=== PATIENT | female | born 1955 | race Caucasian/White ===

== ENCOUNTER 2016-04-28 19:47 | Emergency (ER) | payer SELFPAY ==
[~2016-04-28] VITALS: Ht 165.1 cm; Wt 40.6 kg
[2016-04-28] VITALS (7 sets, daily range): BP systolic 152–198; BP diastolic 87–112; PULSE 86–98; RESP 24–26; TEMP 97.7; O2SAT 92–96
[~2016-04-28 19:47] MED LIST: CEPH-460 PO; HYDR-3533 PO
[2016-04-28] MEDS ORDERED: methylPREDNISolone SOD SUCC 125 MG/2 ML VIAL IVP ONE (20:00)
[2016-04-28] MEDS ORDERED: SODIUM CHLORIDE 0.9% FLUSH 5 ML FLUSH IVF PRN (20:00)
--- NOTE | 2016-04-28 20:00 | PD ---
HPI Chief Complaint: shortness of breath Time Seen by Provider: 19:52 Travel History International Travel<30 days: No Contact w/Intl Traveler<30days: No Traveled to known affect area: No History of Present Illness HPI This 61-year-old female is complaining of increasing shortness of breath over the last 2 weeks. She's been coughing. She had asthma years ago but it has not been active. She does smoke cigarettes. She has no history of heart disease. She has been short of breath with minimal exertion today. She has never been diagnosed with COPD PFS Past Medical History Asthma: Yes Depression: Yes PNEUMOCCOCAL Vaccine (Year): 3 Menopausal: Yes Tubal Ligation: Yes Past Surgical History Eye Surgery: Yes (jorge luis cataract/lens implant) Pacemaker: No Social History Alcohol Use: Yes (FEW GLASSES DAILY) Tobacco Use: Yes (1 PPD) Substance Use: Yes (MARIJUANA OCC) Allergies-Medications (Allergen,Severity, Reaction): Coded Allergies: Banana (Verified Allergy, Severe, Swelling, 04/28/16) Patient states severe swelling and difficulty breathing Phenobarbital (Verified Allergy, Severe, SENSITIVITY, 04/28/16) Reported Meds & Prescriptions Reported Meds & Active Scripts Active Lortab (Hydrocodone-Acetaminophen) 5-325 Mg Tab 1 Tab PO Q6H PRN Review of Systems General / Constitutional: No: Fever, Chills Eyes: No: Diploplia, Blurred Vision HENT: No: Headaches, Vertigo Cardiovascular: No: Chest Pain or Discomfort Respiratory: Positive: Cough, Shortness of Breath, Wheezing Gastrointestinal: No: Vomiting, Diarrhea Genitourinary: No: Urgency, Frequency Musculoskeletal: No: Myalgias, Arthralgias Skin: No Rash, No Itching Neurologic: No: Weakness, Dizziness Endocrine: No: Heat Intolerance Hematologic/Lymphatic: No: Easy Bruising Physical Exam Narrative GENERAL: Thin female in moderate respiratory distress SKIN: Warm and dry. HEAD: Atraumatic. Normocephalic. EYES: Pupils equal and round. No scleral icterus. No injection or drainage. ENT: No nasal bleeding or discharge. Mucous membranes pink and moist. NECK: Trachea midline. No JVD. CARDIOVASCULAR: Regular rate and rhythm. No murmur appreciated. RESPIRATORY: Accessory muscle use is present, breath sounds are diminished bilaterally. There is bilateral wheezing GASTROINTESTINAL: Abdomen soft, non-tender, nondistended. Hepatic and splenic margins not palpable. MUSCULOSKELETAL: No obvious deformities. No clubbing. No cyanosis. No edema. NEUROLOGICAL: Awake and alert. No obvious cranial nerve deficits. Motor grossly within normal limits. Normal speech. PSYCHIATRIC: Appropriate mood and affect; insight and judgment normal. Data Data Last Documented VS Vital Signs Date Time Temp Pulse Resp B/P Pulse Ox O2 Delivery O2 Flow Rate FiO2 04/28/16 21:27 87 24 179/95 93 Nasal Cannula 2 04/28/16 20:11 97.7 Orders Complete Blood Count With Diff (04/28/16 19:56) Comprehensive Metabolic Panel (04/28/16 19:56) B-Type Natriuretic Peptide (04/28/16 19:56) Magnesium (Mg) (04/28/16 19:56) Troponin I (04/28/16 19:56) Ua Includes Microscopic (04/28/16 19:56) Blood Culture (04/28/16 19:56) Iv Access Insert/Monitor (04/28/16 19:56) Electrocardiogram (04/28/16 19:56) Ecg Monitoring (04/28/16 19:56) Oximetry (04/28/16 19:56) Oxygen Administration (04/28/16 19:56) Chest, Single Ap (04/28/16 19:56) Sodium Chloride 0.9% Flush (Ns Flush) (04/28/16 20:00) Methylprednisolone So Succ Inj (Solumedr (04/28/16 20:00) Albuterol-Ipratropium Neb (Duoneb Neb) (04/28/16 20:00) Labs Laboratory Tests Test 04/28/16 20:00 White Blood Count 25.4 TH/MM3 Red Blood Count 4.92 MIL/MM3 Hemoglobin 15.1 GM/DL Hematocrit 45.0 % Mean Corpuscular Volume 91.5 FL Mean Corpuscular Hemoglobin 30.7 PG Mean Corpuscular Hemoglobin 33.5 % Concent Red Cell Distribution Width 11.7 % Platelet Count 421 TH/MM3 Mean Platelet Volume 6.6 FL Neutrophils (%) (Auto) 28.8 % Lymphocytes (%) (Auto) 60.1 % Monocytes (%) (Auto) 3.3 % Eosinophils (%) (Auto) 6.6 % Basophils (%) (Auto) 1.2 % Neutrophils # (Auto) 7.3 TH/MM3 Lymphocytes # (Auto) 15.3 TH/MM3 Monocytes # (Auto) 0.8 TH/MM3 Eosinophils # (Auto) 1.7 TH/MM3 Basophils # (Auto) 0.3 TH/MM3 CBC Comment AUTO DIFF Differential Total Cells 100 Counted Neutrophils % (Manual) 25 % Lymphocytes % 70 % Monocytes % 3 % Eosinophils % 2 % Neutrophils # (Manual) 6.4 TH/MM3 Differential Comment FINAL DIFF MANUAL Platelet Estimate NORMAL Platelet Morphology Comment NORMAL Red Cell Morphology Comment NORMAL Sodium Level 134 MEQ/L Potassium Level 3.9 MEQ/L Chloride Level 96 MEQ/L Carbon Dioxide Level 30.0 MEQ/L Anion Gap 8 MEQ/L Blood Urea Nitrogen 11 MG/DL Creatinine 0.73 MG/DL Estimat Glomerular Filtration 81 ML/MIN Rate Random Glucose 98 MG/DL Calcium Level 8.8 MG/DL Magnesium Level 2.0 MG/DL Total Bilirubin 0.2 MG/DL Aspartate Amino Transf 22 U/L (AST/SGOT) Alanine Aminotransferase 31 U/L (ALT/SGPT) Alkaline Phosphatase 128 U/L Troponin I LESS THAN 0.02 NG/ML B-Type Natriuretic Peptide 17 PG/ML Total Protein 7.8 GM/DL Albumin 4.3 GM/DL [facility] Medical Decision Making Medical Screen Exam Complete: Yes Emergency Medical Condition: Yes Medical Record Reviewed: Yes Differential Diagnosis Differential includes COPD, asthma, pneumonia, CHF Narrative Course X-rays consistent with COPD. There is no infiltrate. She has been given Solu- Medrol and repeated nebulizer treatments and feels much better. On repeat examination she is breathing comfortably and her lungs are clear. She'll be released with prescriptions for Medrol Dosepak, albuterol and amoxicillin. Of note her white count was elevated with a predominance of lymphocytes. I have advised her that she needs to follow up regarding this finding as well as her COPD Diagnosis Primary Impression: COPD (chronic obstructive pulmonary disease) Qualified Code: J44.1 - Chronic obstructive pulmonary disease with acute exacerbation Scripts Albuterol 18 GM Inh (Ventolin Hfa 18 GM Inh)90 Mcg/Act Aer2 Puff INH Q4-6H PRN ( SHORTNESS OF BREATH) #1 INHALER Ref 0 Prov:Orlin Courtney MD 04/28/16 Methylprednisolone Dosepak (Medrol Dosepak)4 Mg Dspk4 Mg PO DIRECTED #1 DSPK Ref 0 Per Pharmacist direction Prov:Orlin Courtney MD 04/28/16 Amoxicillin 500 Mg [id number] Mg PO TID #21 TAB Ref 0 Prov:Orlin Courtney MD 04/28/16 Disposition: 01 DISCHARGE HOME Condition: Stable Orlin Courtney MD Apr 28, 2016 20:00
[2016-04-28 20:14] LABS: AUTOMATED NEUTROPHIL # 7.3 TH/MM3 (1.8-7.7); BASOPHIL # 0.3 TH/MM3 (0-0.2); BASOPHIL % 1.2 % (0.0-2.0); EOSINOPHIL # 1.7 TH/MM3 (0-0.4); EOSINOPHIL % 6.6 % (0.0-4.0); LYMPH % 60.1 % (9.0-44.0); LYMPHOCYTE # 15.3 TH/MM3 (1.0-4.8); MEAN CELL VOLUME 91.5 FL (80.0-100.0); MEAN CORPUSCULAR HEMOGLOBIN 30.7 PG (27.0-34.0); MEAN CORPUSCULAR HGB CONC 33.5 % (32.0-36.0); MONO % 3.3 % (0.0-8.0); NEUT % 28.8 % (16.0-70.0); PLATELET COUNT 421 TH/MM3 (150-450); RED BLOOD COUNT 4.92 MIL/MM3 (4.00-5.30); RED CELL DISTRIBUTION WIDTH 11.7 % (11.6-17.2); WHITE BLOOD COUNT 25.4 TH/MM3 (4.0-11.0)
[2016-04-28] MEDS: RESP: ALBUTEROL 2.5 MG/IPRATROPIUM 0.5 MG NEB (SCH) INH ×2 (20:19→20:20)
[2016-04-28 20:25] LABS: CHLORIDE 96 MEQ/L (98-107); POTASSIUM 3.9 MEQ/L (3.5-5.1); SODIUM (NA) 134 MEQ/L (136-145)
[2016-04-28 20:29] LABS: ANION GAP 8 MEQ/L (5-15); BLOOD UREA NITROGEN 11 MG/DL (7-18)
[2016-04-28 20:32] LABS: ALT (GPT) 31 U/L (10-53); AST (GOT) 22 U/L (15-37); GLOMERULAR FILTRATION RATE 81 ML/MIN (>89)
[2016-04-28 20:33] LABS: TOTAL BILIRUBIN ADULT 0.2 MG/DL (0.2-1.0)
[2016-04-28 20:35] LABS: ALKALINE PHOSPHATASE 128 U/L (45-117); HEMO FLAGS AUTO DIFF
[2016-04-28 21:00] LABS: EOSINOPHILS 2 % (0-4); NEUTROPHIL # MANUAL DIFF 6.4 TH/MM3 (1.8-7.7); POLYS (SEG NEUTROPHILS) 25 % (16-70); WBC DIFF SAMPLE 100
[2016-04-28 21:01] LABS: PLATELET ESTIMATE SMEAR NORMAL (NORMAL); PLATELET MORPHOLOGY NORMAL (NORMAL); SCAN/DIFF FINAL DIFF MANUAL
--- NOTE | 2016-04-28 21:10 | RADHPO ---
EXAM DATE/TIME: 04/28/2016 20:05 [facility] COMPARISON: CHEST SINGLE AP, October 23, 2013, 13:46. INDICATIONS : Short of breath. MEDICAL HISTORY : None. SURGICAL HISTORY : None. ENCOUNTER: Initial ACUITY: 2 weeks PAIN SCORE: 3/10 LOCATION: Bilateral lower chest FINDINGS: The lungs are clear without infiltrate, nodule, or mass. There is no appreciable pleural effusion fo r technique. Heart and mediastinum are unremarkable. There is scarring and pleural thickening in th e apices bilaterally. COPD changes are seen. CONCLUSION: No acute cardiopulmonary disease. Shawn Jane MD on April 28, 2016 at 21:08 Board Certified Radiologist. This report was verified electronically.
[2016-04-28] MEDS ORDERED: AMOX500T PO (22:32)
[2016-04-28] MEDS ORDERED: VENTAER INH (22:32)
[2016-04-28] MEDS ORDERED: MEDR4PAK PO (22:32)
--- NOTE | 2016-04-29 23:17 | EKG ---
Date Performed: 04/28/2016 Time Performed: 20:37:44 PTAGE: 61 years EKG: Sinus rhythm Short TN interval Possible anterior infarct - age undetermined Abnormal ECG PREVIOUS TRACING : 10/23/2013 14.03 DOCTOR: Jeremiah Mallory Interpretating Date/Time 04/29/2016 23:14:44
== END 2016-04-28 23:15 | disposition home or self-care (01) ==
LOC: PHED 19:47
DX: J44.1 Chronic obstructive pulmonary disease with (acute) exacerbation (principal); F17.210 Nicotine dependence, cigarettes, uncomplicated; F10.10 Alcohol abuse, uncomplicated
CPT/HCPCS: 71010; 80053; 83735; 83880; 84484; 85007; 85027; 87040; 93005; 94640; 94664; 96374; 99285; J2930

== ENCOUNTER 2016-05-27 12:22 | Emergency (ER) | payer SELFPAY ==
[~2016-05-27] VITALS: Ht 165.1 cm; Wt 40.0 kg
[~2016-05-27 12:22] MED LIST changes: +AMOX500T PO; -CEPH-460 PO; +MEDR4PAK PO; +VENTAER INH
[2016-05-27 12:28] VITALS: BP 152/104; PULSE 100; RESP 22; TEMP 98.1; O2SAT 93
[2016-05-27 12:46] VITALS: BP 153/94; PULSE 92; RESP 18; O2SAT 93
[2016-05-27] MEDS ORDERED: BENA25TA3 PO (12:49)
[2016-05-27] MEDS ORDERED: SODIUM CHLORIDE 0.9% FLUSH 10 ML FLUSH IVF PRN (13:00)
[2016-05-27] MEDS ORDERED: methylPREDNISolone SOD SUCC 125 MG/2 ML VIAL IV PUSH ONE (13:00)
--- NOTE | 2016-05-27 13:02 | PD ---
HPI Chief Complaint: Respiratory Symptoms Time Seen by Provider: 12:46 Travel History International Travel<30 days: No Contact w/Intl Traveler<30days: No Traveled to known affect area: No History of Present Illness HPI This patient complains of shortness of breath. He has history of asthma and almost certainly COPD. She smoked for 46 years but does not go to physicians except the ER when she gets short of breath. No chest pain or fever. Severity of symptoms is moderate. No alleviating factors. Duration 3 days PFSH Past Medical History Asthma: Yes Depression: Yes COPD: Yes Diminished Hearing: No Musculoskeletal: Yes (OSTEOPOROSIS) Respiratory: Yes (copd) Tetanus Vaccination: Unknown PNEUMOCCOCAL Vaccine (Year): 3 ?: Not Menopausal: Yes Tubal Ligation: Yes Past Surgical History Eye Surgery: Yes (jorge luis cataract/lens implant) Pacemaker: No Social History Alcohol Use: Yes (FEW GLASSES DAILY) Tobacco Use: No (QUIT 1.5 WEEKS AGO (05/27/16)) Substance Use: Yes (MARIJUANA OCC) Allergies-Medications (Allergen,Severity, Reaction): Coded Allergies: Banana (Verified Allergy, Severe, Swelling, 05/27/16) Patient states severe swelling and difficulty breathing Phenobarbital (Verified Allergy, Severe, SENSITIVITY, 05/27/16) Reported Meds & Prescriptions Reported Meds & Active Scripts Active Ventolin Hfa 18 GM Inh (Albuterol Sulfate) 90 Mcg/Act Aer 2 Puff INH Q4-6H PRN Reported Benadryl Allergy (Diphenhydramine HCl) 25 Mg Tab 25 Mg PO Q6H PRN Review of Systems General / Constitutional: No: Fever Eyes: No: Visual changes HENT: Positive: Congestion, No: Headaches Cardiovascular: No: Chest Pain or Discomfort Respiratory: Positive: Cough, Shortness of Breath Gastrointestinal: No: Abdominal Pain Genitourinary: No: Dysuria Musculoskeletal: No: Pain Skin: No Rash Neurologic: No: Weakness Psychiatric: No: Depression Endocrine: No: Polydipsia Hematologic/Lymphatic: No: Easy Bruising Physical Exam Narrative GENERAL: Thin elderly patient who is short of breath. SKIN: Focused skin assessment reveals no rash and nodules. Skin is Warm and dry. HEAD: Atraumatic. Normocephalic. EYES: Pupils equal and round. No scleral icterus. No injection or drainage. ENT: No nasal bleeding or discharge. Mucous membranes pink and moist. NECK: Trachea midline. No JVD. CARDIOVASCULAR: Regular rate and rhythm. No murmur appreciated. RESPIRATORY: Positive accessory muscle use. Diminished breath sounds throughout. There is some rhonchi and a rare expiratory wheeze. Breath sounds equal bilaterally. GASTROINTESTINAL: Abdomen soft, non-tender, nondistended. Hepatic and splenic margins not palpable. MUSCULOSKELETAL: No obvious deformities. No clubbing. No cyanosis. No edema. NEUROLOGICAL: Awake and alert. No obvious cranial nerve deficits. Motor grossly within normal limits. Normal speech. PSYCHIATRIC: Appropriate mood and affect; insight and judgment normal. Data Data Last Documented VS Vital Signs Date Time Temp Pulse Resp B/P Pulse Ox O2 Delivery O2 Flow Rate FiO2 05/27/16 13:04 18 92 Room Air 05/27/16 12:46 92 153/94 05/27/16 12:28 98.1 Orders Complete Blood Count With Diff (05/27/16 12:57) Basic Metabolic Panel (Bmp) (05/27/16 12:57) Iv Access Insert/Monitor (05/27/16 12:57) Ecg Monitoring (05/27/16 12:57) Oximetry (05/27/16 12:57) Chest, Single Ap (05/27/16 12:57) Sodium Chloride 0.9% Flush (Ns Flush) (05/27/16 13:00) Albuterol-Ipratropium Neb (Duoneb Neb) (05/27/16 13:00) Methylprednisolone So Succ Inj (Solumedr (05/27/16 13:00) Labs Laboratory Tests Test 05/27/16 13:10 White Blood Count 21.4 TH/MM3 Red Blood Count 4.42 MIL/MM3 Hemoglobin 13.8 GM/DL Hematocrit 40.4 % Mean Corpuscular Volume 91.3 FL Mean Corpuscular Hemoglobin 31.2 PG Mean Corpuscular Hemoglobin 34.1 % Concent Red Cell Distribution Width 12.0 % Platelet Count 384 TH/MM3 Mean Platelet Volume 6.3 FL Neutrophils (%) (Auto) 24.9 % Lymphocytes (%) (Auto) 63.7 % Monocytes (%) (Auto) 3.8 % Eosinophils (%) (Auto) 5.1 % Basophils (%) (Auto) 2.5 % Neutrophils # (Auto) 5.3 TH/MM3 Lymphocytes # (Auto) 13.7 TH/MM3 Monocytes # (Auto) 0.8 TH/MM3 Eosinophils # (Auto) 1.1 TH/MM3 Basophils # (Auto) 0.5 TH/MM3 CBC Comment AUTO DIFF Differential Total Cells 100 Counted Neutrophils % (Manual) 21 % Lymphocytes % 72 % Monocytes % 4 % Eosinophils % 3 % Neutrophils # (Manual) 4.5 TH/MM3 Differential Comment FINAL DIFF MANUAL Platelet Estimate NORMAL Platelet Morphology Comment NORMAL Sodium Level 136 MEQ/L Potassium Level 4.0 MEQ/L Chloride Level 99 MEQ/L Carbon Dioxide Level 28.9 MEQ/L Anion Gap 8 MEQ/L Blood Urea Nitrogen 14 MG/DL Creatinine 0.64 MG/DL Estimat Glomerular Filtration 94 ML/MIN Rate Random Glucose 98 MG/DL Calcium Level 8.9 MG/DL [facility] Medical Decision Making Medical Screen Exam Complete: Yes Emergency Medical Condition: Yes Medical Record Reviewed: Yes Differential Diagnosis Differential diagnosis includes COPD, asthma, pneumonia, bronchitis, CHF Narrative Course I have reviewed the patient's electronic medical record. Patient was here a few weeks ago for the same complaint. Had a negative chest x-ray at that time IV placed I gave him IV Solu-Medrol and a series of 3 nebulizer treatments I reviewed her chest x-ray which shows COPD like changes but no infiltrate CBC is normal Metabolic profile is normal On reevaluation she is clinically much improved Saturations are running around 95% I wrote her 5 days prednisone and both Atrovent and albuterol inhalers Importantly she needs to stop smoking and follow-up with her primary physician Diagnosis Primary Impression: COPD exacerbation Departure Forms: Tests/Procedures Additional Instructions: The patient was advised to follow up with their physician and return if they worsen. Stop smoking Med/Other Pt SpecificInfo: Prescription(s) given Scripts Albuterol 18 GM Inh (Ventolin Hfa 18 GM Inh)90 Mcg/Act Aer2 Puff INH Q4H PRN ( SHORTNESS OF BREATH) #1 INHALER Ref 0 Prov:Wil Leach MD 05/27/16 Ipratropium HFA 12.9 GM Inh (Atrovent HFA 12.9 GM Inh)17 Mcg/Act Aer2 Puff INH TID #1 INHALER Ref 0 Prov:Wil Leach MD 05/27/16 Prednisone 20 Mg Tab40 Mg PO DAILY #10 TAB Ref 0 Take 40 mg (2 tablets) daily for 5 days Prov:Wil Leach MD 05/27/16 Disposition: 01 DISCHARGE HOME Condition: Stable Wil Leach MD May 27, 2016 13:02
[2016-05-27] MEDS: RESP: ALBUTEROL 2.5 MG/IPRATROPIUM 0.5 MG NEB (SCH) INH (13:03)
[2016-05-27 13:04] VITALS: RESP 18; O2SAT 92
[2016-05-27 13:23] LABS: AUTOMATED NEUTROPHIL # 5.3 TH/MM3 (1.8-7.7); BASOPHIL # 0.5 TH/MM3 (0-0.2); BASOPHIL % 2.5 % (0.0-2.0); EOSINOPHIL # 1.1 TH/MM3 (0-0.4); EOSINOPHIL % 5.1 % (0.0-4.0); HEMATOCRIT 40.4 % (35.0-46.0); LYMPH % 63.7 % (9.0-44.0); LYMPHOCYTE # 13.7 TH/MM3 (1.0-4.8); MEAN CELL VOLUME 91.3 FL (80.0-100.0); MEAN CORPUSCULAR HEMOGLOBIN 31.2 PG (27.0-34.0); MEAN CORPUSCULAR HGB CONC 34.1 % (32.0-36.0); MONO % 3.8 % (0.0-8.0); NEUT % 24.9 % (16.0-70.0); PLATELET COUNT 384 TH/MM3 (150-450); RED BLOOD COUNT 4.42 MIL/MM3 (4.00-5.30); WHITE BLOOD COUNT 21.4 TH/MM3 (4.0-11.0)
--- NOTE | 2016-05-27 13:24 | RADHPO ---
EXAM DATE/TIME: 05/27/2016 13:18 [facility] COMPARISON: CHEST SINGLE AP, April 28, 2016, 20:05. INDICATIONS : Short of breath MEDICAL HISTORY : Chronic obstructive pulmonary disease. Asthma SURGICAL HISTORY : None. ENCOUNTER: Initial ACUITY: 1 day PAIN SCORE: 2/10 LOCATION: Bilateral chest FINDINGS: A single view of the chest demonstrates the lungs to be symmetrically aerated without evidence of mas s, infiltrate or effusion. The lungs are hyperaerated bilaterally. The cardiomediastinal contours ar e unremarkable. Osseous structures are intact. CONCLUSION: Hyperinflation suggesting COPD. No acute infiltrate or effusion. Jai Watt Jr., MD on May 27, 2016 at 13:22 Board Certified Radiologist. This report was verified electronically.
[2016-05-27 13:25] LABS: HEMO FLAGS AUTO DIFF
[2016-05-27 13:36] LABS: BICARBONATE 28.9 MEQ/L (21.0-32.0)
[2016-05-27 13:47] LABS: EOSINOPHILS 3 % (0-4); NEUTROPHIL # MANUAL DIFF 4.5 TH/MM3 (1.8-7.7); POLYS (SEG NEUTROPHILS) 21 % (16-70); WBC DIFF SAMPLE 100
[2016-05-27 13:48] LABS: PLATELET ESTIMATE SMEAR NORMAL (NORMAL); PLATELET MORPHOLOGY NORMAL (NORMAL); SCAN/DIFF FINAL DIFF MANUAL
[2016-05-27] MEDS ORDERED: IPRA17I INH (13:59)
[2016-05-27] MEDS ORDERED: VENTAER INH (13:59)
[2016-05-27] MEDS ORDERED: PRED20 PO (13:59)
[2016-05-27 14:01] VITALS: BP 140/72; PULSE 92; RESP 18; O2SAT 94
== END 2016-05-27 14:12 | disposition home or self-care (01) ==
LOC: PHED 12:22
DX: J44.1 Chronic obstructive pulmonary disease with (acute) exacerbation (principal); M81.0 Age-related osteoporosis without current pathological fracture; Z87.891 Personal history of nicotine dependence
CPT/HCPCS: 71010; 80048; 85007; 85027; 94640; 94664; 96374; 99285; J2930

== ENCOUNTER 2016-11-07 14:21 | Emergency (ER) | payer SELFPAY ==
[~2016-11-07] VITALS: Ht 165.1 cm; Wt 43.0 kg
[~2016-11-07 14:21] MED LIST changes: -AMOX500T PO; +BENA25TA3 PO; -HYDR-3533 PO; +IPRA17I INH; -MEDR4PAK PO; +PRED20 PO
[2016-11-07 15:38] VITALS: BP 170/81; PULSE 88; RESP 16; TEMP 98.6; O2SAT 98
--- NOTE | 2016-11-07 15:47 | RADRPT ---
EXAM DATE/TIME: 11/07/2016 15:27 [facility] COMPARISON: No previous studies available for comparison. INDICATIONS : Left knee pain. MEDICAL HISTORY : None. SURGICAL HISTORY : None. ENCOUNTER: Initial ACUITY: 1 day PAIN SCORE: 8/10 LOCATION: Left knee FINDINGS: There is a moderate to large effusion. There is some fat density seen in the superior aspect of the s uprapatellar region. On the lateral view, there is a lucent area seen over one of the posterior condy les. Some of this may relate to a mach effect posterior to the tibial spines. A subtle fracture canno t be excluded. No fracture seen on the other views. CONCLUSION: Moderate to large effusion with some questionable fat within the effusion. An occult fracture cannot be excluded. The knee could be further evaluated with CT examination. Kobe Dominguez MD on November 07, 2016 at 15:41 Board Certified Radiologist. This report was verified electronically.
--- NOTE | 2016-11-07 17:56 | RADRPT ---
EXAM DATE/TIME: 11/07/2016 17:31 [facility] COMPARISON: KNEE LEFT COMPLETE (4VWS), November 07, 2016, 15:27. INDICATIONS : Abnormal x-ray. Evaluate fracture. RADIATION DOSE: 6.97 CTDIvol (mGy) MEDICAL HISTORY : Chronic obstructive pulmonary disease. SURGICAL HISTORY : Hysterectomy. ENCOUNTER: Initial ACUITY: 1 day PAIN SCALE: 4/10 LOCATION: Left knee TECHNIQUE: Volumetric scanning of the knee was performed. Using automated exposure control and adjustment of th e mA and/or kV according to patient size, radiation dose was kept as low as reasonably achievable to obtain optimal diagnostic quality images. DICOM format image data is available electronically for re view and comparison. FINDINGS: There is a comminuted fracture of the lateral and posterior weightbearing surfaces of the medial tibi al plateau. There is approximately 4 mm of posteromedial downsloping, for example series 300 image 40 . The fracture has minimally displaced extension laterally through the tibial eminence and posterior weightbearing surface of the lateral tibial plateau.. Cruciate ligaments are grossly intact. No other fractures are seen. No subluxations. There is a large lipohemarthrosis. CONCLUSION: Comminuted fracture of the proximal tibia including the medial and lateral plateaus and the tibial em inence. Up to 4 mm of posteromedial downsloping of the medial tibial plateau. Otherwise essential ly nondisplaced. Large lipohemarthrosis. Kobe Thompson MD on November 07, 2016 at 17:50 Board Certified Radiologist. This report was verified electronically.
[2016-11-07] MEDS ORDERED: MORPHINE SULFATE 4 MG/ML INJ IM ONE (18:00)
[2016-11-07] MEDS ORDERED: KETOROLAC TROMETHAMINE 60 MG/2 ML (IM) VIAL IM ONE (18:00)
[2016-11-07] MEDS ORDERED: ONDANSETRON ODT 4 MG TAB PO ONE (18:00)
--- NOTE | 2016-11-07 18:08 | PD ---
HPI Chief Complaint: Fall Time Seen by Provider: 17:23 Travel History International Travel<30 days: No Contact w/Intl Traveler<30days: No Traveled to known affect area: No History of Present Illness HPI 61-year-old female that presents to the ED for evaluation of fall. Per patient she was outside doing some cleanup when I goes off when he got her and she fell into her left knee. Per patient she denies any other injuries. Per patient her pain in her left knee is 10 out of 10. Denies any prior injuries to this knee but states that she has "brittle bones "she has had 3 fractures in the past 8 years. She is concerned she might have a new one. States having pain only to the knee. No hip pain or ankle pain. She does have a history of allergic reaction to grass and she has a rash to her legs which is pruritic and swollen. Denies any other medical issues. No blood thinners. No head injury or loss of consciousness. PFSH Past Medical History Asthma: Yes Depression: Yes COPD: Yes Diminished Hearing: No Musculoskeletal: Yes (OSTEOPOROSIS) Respiratory: Yes (copd) PNEUMOCCOCAL Vaccine (Year): 3 Menopausal: Yes Tubal Ligation: Yes Past Surgical History Eye Surgery: Yes (jorge luis cataract/lens implant) Pacemaker: No Social History Alcohol Use: Yes (FEW GLASSES DAILY) Tobacco Use: No (QUIT 1.5 WEEKS AGO (05/27/16)) Substance Use: Yes (MARIJUANA OCC) Allergies-Medications (Allergen,Severity, Reaction): Coded Allergies: banana (Unverified Allergy, Severe, Swelling, 11/07/16) Patient states severe swelling and difficulty breathing phenobarbital (Unverified Allergy, Severe, SENSITIVITY, 11/07/16) Reported Meds & Prescriptions Reported Meds & Active Scripts Active Walker with Front Wheels (Device) 1 Mis Mis Ea .ROUTE DIRECTED Diclofenac Sodium DR (Diclofenac Sodium) 75 Mg Tabdr 75 Mg PO BID PRN Lortab (Hydrocodone-Acetaminophen) 5-325 Mg Tab 1 Tab PO Q6H PRN Ventolin Hfa 18 GM Inh (Albuterol Sulfate) 90 Mcg/Act Aer 2 Puff INH Q4H PRN Atrovent HFA 12.9 GM Inh (Ipratropium [place]) 17 Mcg/Act Aer 2 Puff INH TID Prednisone 20 Mg Tab 40 Mg PO DAILY Take 40 mg (2 tablets) daily for 5 days Ventolin Hfa 18 GM Inh (Albuterol Sulfate) 90 Mcg/Act Aer 2 Puff INH Q4-6H PRN Reported Benadryl Allergy (Diphenhydramine HCl) 25 Mg Tab 25 Mg PO Q6H PRN Review of Systems Except as stated in HPI: all other systems reviewed are Neg Physical Exam Narrative GENERAL: SKIN: Warm and dry. HEAD: Atraumatic. Normocephalic. EYES: Pupils equal and round. No scleral icterus. No injection or drainage. ENT: No nasal bleeding or discharge. Mucous membranes pink and moist. Tongue is midline. No uvula deviation. NECK: Trachea midline. No JVD. CARDIOVASCULAR: Regular rate and rhythm. No murmurs, S3, S4. RESPIRATORY: No accessory muscle use. Clear to auscultation. Breath sounds equal bilaterally. GASTROINTESTINAL: Abdomen soft, non-tender, nondistended. Hepatic and splenic margins not palpable. MUSCULOSKELETAL: Extremities without clubbing, cyanosis, or edema. No obvious deformities. Full range of motion of all extremities with the exception of the left knee. Patient does have significant swelling to the knee. Very tender especially with flexion. Patient does have a hematoma in the area as well. No other bony injury noted. Patient does have 2+ pulses bilaterally. Neurovascular intact. Sensation intact bilaterally. Full range of motion of the hips with no pain. No lumbar, thoracic, cervical spine spine tenderness to palpation. Full range of motion of the upper extremities. NEUROLOGICAL: Awake and alert. No obvious cranial nerve deficits. Motor grossly within normal limits. Five out of 5 muscle strength in the arms and legs. Normal speech. PSYCHIATRIC: Appropriate mood and affect; insight and judgment normal. Data Data Last Documented VS Vital Signs Date Time Temp Pulse Resp B/P (MAP) Pulse Ox O2 Delivery O2 Flow Rate FiO2 11/07/16 15:38 98.6 88 16 170/81 (110) 98 Orders Orders Knee, Complete (4vws) (11/07/16 ) Ct Knee W/O Contrast (11/07/16 ) Morphine Inj (Morphine Inj) (11/07/16 18:00) Ondansetron Odt (Zofran Odt) (11/07/16 18:00) Ketorolac Inj (Toradol Inj) (11/07/16 18:00) Splint Or Brace Apply/Monitor (11/07/16 18:47) Immobilizer Knee 20 Inch (11/07/16 ) MDM Medical Decision Making Medical Screen Exam Complete: Yes Emergency Medical Condition: Yes Medical Record Reviewed: Yes Interpretation(s) Last Impressions Lower Extremity CT 11/07/16 0000 Signed Impressions: Service Date/Time: Monday, November 07, 2016 17:31 - CONCLUSION: Comminuted fracture of the proximal tibia including the medial and lateral plateaus and the tibial eminence. Up to 4 mm of posteromedial downsloping of the medial tibial plateau. Otherwise essentially nondisplaced. Large lipohemarthrosis. Kobe Thompson MD Knee X-Ray 11/07/16 0000 Signed Impressions: Service Date/Time: Monday, November 07, 2016 15:27 - CONCLUSION: Moderate to large effusion with some questionable fat within the effusion. An occult fracture cannot be excluded. The knee could be further evaluated with CT examination. Kobe Dominguez MD Differential Diagnosis Fracture versus sprain versus strain versus bruise versus contusion Narrative Course 61-year-old female that presents to the ED for evaluation of left knee injury. Patient was properly examined and was found to have signs and symptoms concerning for fractures. X-rays were done at triage did show significant effusion. Radiologist recommended CT. CT was ordered at triage as well. CT came back showing comminuted fracture of the proximal tibia including the medial and lateral blood cells and medial eminence. Up to 4 mm of posterior medial downsloping of the medial tibia plateau. Otherwise essentially nondisplaced. Large lipohemarthrosis. Patient was told results. She was given IM pain medications. Case discussed with the orthopedic surgeon who recommends Diagnosis Primary Impression: Tibia fracture Qualified Codes: S82.102A - Unspecified fracture of upper end of left tibia, initial encounter for closed fracture Referrals: Nehemias Tony MD Patient Instructions: General Instructions, Narcotic given in the ED Additional Instructions: Take medications as prescribed. Follow-up with ortho. See ED for any worsening symptoms. Do not drink or drive while taking pain medication. Apply ice or heat as needed for pain Med/Other Pt SpecificInfo: Prescription(s) given Scripts Walker with Front Wheels (Walker with Front Wheels) 1 Mis Mis EA .ROUTE DIRECTED, #1 0 Refills Prov: Eric Winters MD 11/07/[address] (Diclofenac Sodium DR) 75 Mg Tabdr 75 MG PO BID Y for PAIN SCALE 1 TO 10, #60 TAB 0 Refills Prov: Eric Winters MD 11/07/16 Hydrocodone-Acetaminophen (Lortab) 5-325 Mg Tab 1 TAB PO Q6H Y for PAIN, #14 TAB 0 Refills Prov: Eric Winters MD 11/07/16 Disposition: 01 DISCHARGE HOME Condition: Stable Alex Gandhi Nov 07, 2016 18:08
[2016-11-07] MEDS ORDERED: DICL75TA PO (19:05)
[2016-11-07] MEDS ORDERED: HYDR-3533 PO (19:05)
[2016-11-07] MEDS ORDERED: WALKER WHEELS/F1 MIS ×2 (19:05→19:15)
[2016-11-07 20:03] VITALS: BP 156/79; PULSE 84; RESP 18; O2SAT 95
[2016-11-07 20:09] VITALS: RESP 18
== END 2016-11-07 20:25 | disposition home or self-care (01) ==
LOC: PHEFT 14:21
DX: S82.102A Unspecified fracture of upper end of left tibia, initial encounter for closed fracture (principal); W18.30XA Fall on same level, unspecified, initial encounter; Y93.H9 Activity, other involving exterior property and land maintenance, building and construction; J45.909 Unspecified asthma, uncomplicated; J44.9 Chronic obstructive pulmonary disease, unspecified; M81.8 Other osteoporosis without current pathological fracture; Z87.891 Personal history of nicotine dependence
CPT/HCPCS: 73564; 73700; 96372; 99285; J1885; J2270; L1830

== ENCOUNTER 2017-03-06 20:34 | Emergency (ER) | payer SELFPAY ==
[~2017-03-06] VITALS: Ht 165.1 cm; Wt 42.7 kg
[~2017-03-06 20:34] MED LIST changes: +DICL75TA PO; +HYDR-3533 PO; +WALKER WHEELS/F1 MIS
[2017-03-06 20:36] VITALS: BP 208/104; PULSE 93; RESP 22; TEMP 97.9; O2SAT 94
[2017-03-06 20:46] VITALS: BP 197/112; PULSE 88; RESP 18; TEMP 97.2; O2SAT 97
[2017-03-06] MEDS ORDERED: hydrALAZINE HCL 20 MG/ML VIAL IV PUSH ONE (21:00)
[2017-03-06] MEDS ORDERED: RESP: ALBUTEROL 2.5 MG/IPRATROPIUM 0.5 MG NEB (SCH) INH ONE ×2 (21:00→21:45)
[2017-03-06 21:16] LABS: AUTOMATED NEUTROPHIL # 6.2 TH/MM3 (1.8-7.7); BASOPHIL # 0.2 TH/MM3 (0-0.2); BASOPHIL % 0.7 % (0.0-2.0); EOSINOPHIL # 0.9 TH/MM3 (0-0.4); EOSINOPHIL % 4.1 % (0.0-4.0); HEMATOCRIT 42.8 % (35.0-46.0); HEMOGLOBIN 13.9 GM/DL (11.6-15.3); LYMPH % 62.9 % (9.0-44.0); LYMPHOCYTE # 14.1 TH/MM3 (1.0-4.8); MEAN CELL VOLUME 90.5 FL (80.0-100.0); MEAN CORPUSCULAR HEMOGLOBIN 29.3 PG (27.0-34.0); MEAN CORPUSCULAR HGB CONC 32.4 % (32.0-36.0); MEAN PLATELET VOLUME 6.2 FL (7.0-11.0); MONO % 4.5 % (0.0-8.0); NEUT % 27.8 % (16.0-70.0); PLATELET COUNT 317 TH/MM3 (150-450); RED BLOOD COUNT 4.72 MIL/MM3 (4.00-5.30); RED CELL DISTRIBUTION WIDTH 12.6 % (11.6-17.2); WHITE BLOOD COUNT 22.4 TH/MM3 (4.0-11.0)
--- NOTE | 2017-03-06 21:17 | PD ---
HPI Chief Complaint: Respiratory Symptoms Time Seen by Provider: 20:53 Travel History International Travel<30 days: No Contact w/Intl Traveler<30days: No Traveled to known affect area: No History of Present Illness HPI 61-year-old female complains of shortness of breath. Patient states that the shortness breath is worse at night. Patient denies any coughing congestion fever chills. Patient denies any chest pain. Patient has history COPD. Patient states that she smoked occasionally. Patient states that she ran out of her inhaler and nebulizer medication. Patient has history of elevated blood pressure however has not seen any local physician for blood pressure medication. Patient denies any headache. Patient denies any abdominal pain. Patient denies any nausea vomiting diarrhea. Patient denies any focal weakness or numbness of extremity. PFSH Past Medical History Asthma: Yes Depression: Yes COPD: Yes Diminished Hearing: No Musculoskeletal: Yes (OSTEOPOROSIS) Respiratory: Yes (copd) Tetanus Vaccination: > 5 Years PNEUMOCCOCAL Vaccine (Year): 3 ?: Not Menopausal: Yes Tubal Ligation: Yes Past Surgical History Eye Surgery: Yes (jorge luis cataract/lens implant) Pacemaker: No Social History Alcohol Use: Yes (FEW GLASSES DAILY) Tobacco Use: Yes (1 ppd ) Substance Use: No Allergies-Medications (Allergen,Severity, Reaction): Coded Allergies: banana (Unverified Allergy, Severe, Swelling, 03/06/17) Patient states severe swelling and difficulty breathing phenobarbital (Unverified Allergy, Severe, SENSITIVITY, 03/06/17) Reported Meds & Prescriptions Reported Meds & Active Scripts Active No Active Prescriptions or Reported Medications Review of Systems General / Constitutional: No: Fever Eyes: No: Visual changes HENT: No: Headaches Cardiovascular: No: Chest Pain or Discomfort Respiratory: Positive: Shortness of Breath Gastrointestinal: No: Abdominal Pain Genitourinary: No: Dysuria Musculoskeletal: No: Pain Skin: No Rash Neurologic: No: Weakness Psychiatric: No: Depression Endocrine: No: Polydipsia Hematologic/Lymphatic: No: Easy Bruising Physical Exam Narrative GENERAL: Well-nourished, well-developed patient. SKIN: Focused skin assessment warm/dry. HEAD: Normocephalic. EYES: No scleral icterus. No injection or drainage. NECK: Supple, trachea midline. No JVD or lymphadenopathy. CARDIOVASCULAR: Regular rate and rhythm without murmurs, gallops, or rubs. RESPIRATORY: Breath sounds equal bilaterally. No accessory muscle use. Mild expiratory wheezes bilaterally. GASTROINTESTINAL: Abdomen soft, non-tender, nondistended. MUSCULOSKELETAL: No cyanosis, or edema. BACK: Nontender without obvious deformity. No CVA tenderness. Neurologic exam normal. Data Data Last Documented VS Vital Signs Date Time Temp Pulse Resp B/P (MAP) Pulse Ox O2 Delivery O2 Flow Rate FiO2 03/06/17 21:31 94 03/06/17 20:51 Room Air 03/06/17 20:46 97.2 88 18 Orders Orders Complete Blood Count With Diff (03/06/17 20:59) Basic Metabolic Panel (Bmp) (03/06/17 20:59) Chest, Single Ap (03/06/17 20:59) Iv Access Insert/Monitor (03/06/17 20:59) Ecg Monitoring (03/06/17 20:59) Oximetry (03/06/17 20:59) Albuterol-Ipratropium Neb (Duoneb Neb) (03/06/17 21:00) Hydralazine Inj (Apresoline Inj) (03/06/17 21:00) Methylprednisolone So Succ Inj (Solumedr (03/06/17 21:45) Albuterol-Ipratropium Neb (Duoneb Neb) (03/06/17 21:45) Labs Laboratory Tests Test 03/06/17 21:11 White Blood Count 22.4 TH/MM3 Red Blood Count 4.72 MIL/MM3 Hemoglobin 13.9 GM/DL Hematocrit 42.8 % Mean Corpuscular Volume 90.5 FL Mean Corpuscular Hemoglobin 29.3 PG Mean Corpuscular Hemoglobin Concent 32.4 % Red Cell Distribution Width 12.6 % Platelet Count 317 TH/MM3 Mean Platelet Volume 6.2 FL Neutrophils (%) (Auto) 27.8 % Lymphocytes (%) (Auto) 62.9 % Monocytes (%) (Auto) 4.5 % Eosinophils (%) (Auto) 4.1 % Basophils (%) (Auto) 0.7 % Neutrophils # (Auto) 6.2 TH/MM3 Lymphocytes # (Auto) 14.1 TH/MM3 Monocytes # (Auto) 1.0 TH/MM3 Eosinophils # (Auto) 0.9 TH/MM3 Basophils # (Auto) 0.2 TH/MM3 CBC Comment AUTO DIFF Blood Urea Nitrogen 9 MG/DL Creatinine 0.49 MG/DL Random Glucose 106 MG/DL Calcium Level 8.6 MG/DL Sodium Level 132 MEQ/L Potassium Level 3.6 MEQ/L Chloride Level 95 MEQ/L Carbon Dioxide Level 30.2 MEQ/L Anion Gap 7 MEQ/L Estimat Glomerular Filtration Rate 128 ML/MIN MDM Medical Decision Making Medical Screen Exam Complete: Yes Emergency Medical Condition: Yes Interpretation(s) Last Impressions Chest X-Ray 03/06/172058 Signed Impressions: Service Date/Time: Monday, March 06, 2017 21:16 - CONCLUSION: Normal examination. Arnoldo Escalera MD 21:40 PM. CBC WBC 22.4. 62 lymphs. Sodium 132. Differential Diagnosis Differential diagnosis including acute exacerbation COPD, bronchitis, pneumonia , PE, pneumothorax, hypertension. Narrative Course 61-year-old female with shortness of breath and elevated blood pressure. History of COPD. Albuterol with Atrovent unit dose times one. Hydralazine 10 mg IV given. Diagnosis Primary Impression: COPD with acute exacerbation Additional Impression: Hypertension Qualified Codes: I10 - Essential (primary) hypertension Patient Instructions: General Instructions Additional Instructions: Take medications as directed. Albuterol treatment as needed. Follow-up with personal physician. Return if worse. Med/Other Pt SpecificInfo: Prescription(s) given Scripts Amlodipine (Amlodipine) 5 Mg Tab 5 MG PO DAILY for Blood Pressure Management, #30 TAB 0 Refills Prov: Jonathon Lynch MD 03/06/17 Lisinopril (Lisinopril) 10 Mg Tab 10 MG PO DAILY, #30 TAB 0 Refills Prov: Jonathon Lynch MD 03/06/17 Ipratropium Neb (Ipratropium Neb) 0.5 Mg/2.5 Ml Amp 0.5 MG NEB Q4HR NEB Y for SHORTNESS OF BREATH, #60 NEBULE 0 Refills Prov: Jonathon Lynch MD 03/06/17 Albuterol Neb (Albuterol Neb) 2.5 Mg/3 Ml Neb 2.5 MG NEB Q4HR NEB Y for SHORTNESS OF BREATH, #60 NEBULE 0 Refills Prov: Jonathon Lynch MD 03/06/17 Albuterol 18 GM Inh (Ventolin Hfa 18 GM Inh) 90 Mcg/Act Aer 2 PUFF INH Q4-6H Y for SHORTNESS OF BREATH, #1 INHALER 0 Refills Prov: Jonathon Lynch MD 03/06/17 Disposition: 01 DISCHARGE HOME Condition: Stable Jonathon Lynch MD Mar 06, 2017 21:17
[2017-03-06 21:26] LABS: CALCIUM 8.6 MG/DL (8.5-10.1)
[2017-03-06 21:27] LABS: BICARBONATE 30.2 MEQ/L (21.0-32.0)
--- NOTE | 2017-03-06 21:29 | RADRPT ---
EXAM DATE/TIME: 03/06/2017 21:16 [facility] COMPARISON: CHEST SINGLE AP, May 27, 2016, 13:18. INDICATIONS : Shortness of breath. MEDICAL HISTORY : Chronic obstructive pulmonary disease. Asthma. SURGICAL HISTORY : None. ENCOUNTER: Initial ACUITY: 1 day PAIN SCORE: 0/10 LOCATION: Bilateral chest FINDINGS: A single view of the chest demonstrates the lungs to be symmetrically aerated without evidence of mas s, infiltrate or effusion. The cardiomediastinal contours are unremarkable. Osseous structures are intact with multiple healed rib fractures bilaterally. CONCLUSION: Normal examination. Arnoldo Escalera MD on March 06, 2017 at 21:26 Board Certified Radiologist. This report was verified electronically.
[2017-03-06 21:30] LABS: CREATININE 0.49 MG/DL (0.50-1.00)
[2017-03-06 21:31] VITALS: O2SAT 94
[2017-03-06] MEDS ORDERED: methylPREDNISolone SOD SUCC 125 MG/2 ML VIAL IV PUSH ONE (21:45)
[2017-03-06] MEDS ORDERED: IPRA0.02 NEB (21:46)
[2017-03-06] MEDS ORDERED: VENTAER INH (21:46)
[2017-03-06] MEDS ORDERED: ALBU0.08 NEB (21:46)
[2017-03-06] MEDS ORDERED: LISI10TA3 PO (21:46)
[2017-03-06] MEDS ORDERED: AMLO5TAB2 PO (21:47)
[2017-03-06 22:03] VITALS: BP 142/82; PULSE 85; RESP 18; TEMP 97.8; O2SAT 96
[2017-03-06 22:32] LABS: BANDS 1 % (0-6); LYMPHOCYTES 76 % (9-44); MONOCYTES 3 % (0-8); NEUTROPHIL # MANUAL DIFF 4.5 TH/MM3 (1.8-7.7); POLYS (SEG NEUTROPHILS) 19 % (16-70)
[2017-03-06 22:33] LABS: SMUDGE CELLS PRESENT PRESENT
== END 2017-03-06 22:32 | disposition home or self-care (01) ==
LOC: PHED 20:34
DX: J44.1 Chronic obstructive pulmonary disease with (acute) exacerbation (principal); I10 Essential (primary) hypertension; D72.820 Lymphocytosis (symptomatic); F32.9 Major depressive disorder, single episode, unspecified; M81.0 Age-related osteoporosis without current pathological fracture; F17.200 Nicotine dependence, unspecified, uncomplicated
CPT/HCPCS: 71045; 80048; 85007; 85027; 94640; 94664; 96374; 96375; 99284; J0360; J2930

== ENCOUNTER 2017-04-10 21:28 | Inpatient (IN) | payer SELFPAY ==
[~2017-04-10] VITALS: Ht 165.1 cm; Wt 45.8 kg
[~2017-04-10 21:28] MED LIST changes: +ALBU0.08 NEB; +AMLO5TAB2 PO; -BENA25TA3 PO; -DICL75TA PO; -HYDR-3533 PO; +IPRA0.02 NEB; -IPRA17I INH; +LISI10TA3 PO; -PRED20 PO; -WALKER WHEELS/F1 MIS
[2017-04-10 22:19] VITALS: BP 192/95; PULSE 91; RESP 24; TEMP 98.4; O2SAT 90
[2017-04-10 22:40] VITALS: BP 199/110; PULSE 90; RESP 26; O2SAT 92
--- NOTE | 2017-04-10 22:50 | PD ---
HPI Chief Complaint: Respiratory Symptoms Time Seen by Provider: 22:47 Travel History International Travel<30 days: No Contact w/Intl Traveler<30days: No Traveled to known affect area: No History of Present Illness HPI 62-year-old female came to the emergency room with history of shortness of breath. Patient says is progressively worsening for past 1 week. History of COPD. She does not have a primary care but comes to the emergency room during flareups and it's prescription for albuterol inhaler. Patient says that she used her inhaler during this one week and it has finished. Oxygen saturation had gone down to the 87% when they brought her from the waiting room into the ER. Patient appears to be in moderate respiratory distress. Patient denies any fever. Patient smokes occasionally. No history of chest pain. Blood pressure was on the higher side. PFSH Past Medical History Narrative Medical List of her past medical, surgical, social and family history is reviewed from the nursing note. Asthma: Yes Depression: Yes COPD: Yes Diminished Hearing: No Musculoskeletal: Yes (OSTEOPOROSIS) Respiratory: Yes (copd) PNEUMOCCOCAL Vaccine (Year): 3 ?: Not Menopausal: Yes Tubal Ligation: Yes Past Surgical History Eye Surgery: Yes (jorge luis cataract/lens implant) Pacemaker: No Social History Alcohol Use: Yes (FEW GLASSES DAILY) Tobacco Use: No (1 ppd ) Substance Use: No Allergies-Medications (Allergen,Severity, Reaction): Coded Allergies: banana (Unverified Allergy, Severe, Swelling, 04/10/17) Patient states severe swelling and difficulty breathing phenobarbital (Unverified Allergy, Severe, SENSITIVITY, 04/10/17) Comments List of her allergies reviewed from the nursing note. Reported Meds & Prescriptions Reported Meds & Active Scripts Active Amlodipine (Amlodipine Besylate) 5 Mg Tab 5 Mg PO DAILY Lisinopril 10 Mg Tab 10 Mg PO DAILY Ipratropium Neb (Ipratropium [place]) 0.5 Mg/2.5 Ml Amp 0.5 Mg NEB Q4HR NEB PRN Albuterol Neb (Albuterol Sulfate) 2.5 Mg/3 Ml Neb 2.5 Mg NEB Q4HR NEB PRN Ventolin Hfa 18 GM Inh (Albuterol Sulfate) 90 Mcg/Act Aer 2 Puff INH Q4-6H PRN Narrative Medication List of her home medications reviewed from the nursing note. Review of Systems Except as stated in HPI: all other systems reviewed are Neg Respiratory: Positive: Shortness of Breath Physical Exam Narrative GENERAL: Awake, alert, looks older than her age, moderate respiratory distress SKIN: Focused skin assessment warm/dry. HEAD: Atraumatic. Normocephalic. EYES: Pupils equal and round. No scleral icterus. No injection or drainage. ENT: No nasal bleeding or discharge. Mucous membranes pink and moist. NECK: Trachea midline. No JVD. CARDIOVASCULAR: Regular rate and rhythm. No murmur appreciated. RESPIRATORY: Respiratory distress, significantly diminished air entry bilaterally with some end expiratory wheeze. GASTROINTESTINAL: Abdomen soft, non-tender, nondistended. Hepatic and splenic margins not palpable. MUSCULOSKELETAL: No obvious deformities. No clubbing. No cyanosis. No edema. NEUROLOGICAL: Awake and alert. No obvious cranial nerve deficits. Motor grossly within normal limits. Normal speech. PSYCHIATRIC: Appropriate mood and affect; insight and judgment normal. Data Data Last Documented VS Vital Signs Date Time Temp Pulse Resp B/P (MAP) Pulse Ox O2 Delivery O2 Flow Rate FiO2 04/11/17 00:42 91 20 185/92 (123) 92 Nasal Cannula 2.00 04/10/17 22:19 98.4 Orders Orders Complete Blood Count With Diff (04/10/17 22:49) Basic Metabolic Panel (Bmp) (04/10/17 22:49) B-Type Natriuretic Peptide (04/10/17 22:49) Magnesium (Mg) (04/10/17 22:49) Troponin I (04/10/17 22:49) Arterial Blood Gas (Abg) (04/10/17 22:49) Iv Access Insert/Monitor (04/10/17 22:49) Electrocardiogram (04/10/17 22:49) Ecg Monitoring (04/10/17 22:49) Oximetry (04/10/17 22:49) Oxygen Administration (04/10/17 22:49) Chest, Single Ap (04/10/17 22:49) Sodium Chloride 0.9% Flush (Ns Flush) (04/10/17 23:00) Methylprednisolone So Succ Inj (Solumedr (04/10/17 23:00) Albuterol-Ipratropium Neb (Duoneb Neb) (04/10/17 23:00) Albuterol Neb (Albuterol Neb) (04/11/17 00:45) Potassium Chloride (Kcl) (04/11/17 00:45) Ceftriaxone Inj (Rocephin Inj) (04/11/17 00:45) Azithromycin Inj (Zithromax Inj) (04/11/17 00:45) Place In Observation (04/11/17 ) Vital Signs (Adult) Q4H (04/11/17 00:46) Activity Oob With Assistance (04/11/17 00:46) Second Miller / Telemetry .CONTINUOUS (04/11/17 00:46) Diet Heart Healthy (04/11/17 Breakfast) Sodium Chloride 0.9% Flush (Ns Flush) (04/11/17 01:00) Sodium Chloride 0.9% Flush (Ns Flush) (04/11/17 09:00) Resp Oxygen Ronaldo C Titrat 1-4 L (04/11/17 ) Pt Request For Service (04/11/17 00:46) Case Management Consult (04/11/17 00:46) Naloxone Inj (Narcan Inj) (04/11/17 01:00) Methylprednisolone So Succ Inj (Solumedr (04/11/17 06:00) Pantoprazole (Protonix) (04/11/17 09:00) Albuterol-Ipratropium Neb (Duoneb Neb) (04/11/17 04:00) Albuterol-Ipratropium Neb (Duoneb Neb) (04/11/17 01:00) Admit Order (Ed Use Only) (04/11/17 00:48) Sodium Chlor 0.9% 1000 Ml Inj (Ns 1000 M (04/11/17 01:00) Labs Laboratory Tests Test 04/10/17 23:00 04/10/17 23:50 Blood Gas Puncture Site RT RADIAL Blood Gas Patient Temperature 98.6 Blood Gas HCO3 27 mmol/L Blood Gas Base Excess 2.6 mmol/L Blood Gas Oxygen Saturation 92 % Arterial Blood pH 7.41 Arterial Blood Partial Pressure CO2 43 mmHG Arterial Blood Partial Pressure O2 74 mmHG Arterial Blood Oxygen Content 17.7 Vol % Arterial Blood Carboxyhemoglobin 1.7 % Arterial Blood Methemoglobin 0.9 % Blood Gas Hemoglobin 13.7 G/DL Oxygen Delivery Device NASAL CANNULA Blood Gas Liter Flow 2 L/M White Blood Count 26.6 TH/MM3 Red Blood Count 4.57 MIL/MM3 Hemoglobin 13.9 GM/DL Hematocrit 40.3 % Mean Corpuscular Volume 88.2 FL Mean Corpuscular Hemoglobin 30.5 PG Mean Corpuscular Hemoglobin Concent 34.6 % Red Cell Distribution Width 12.3 % Platelet Count 369 TH/MM3 Mean Platelet Volume 6.4 FL Neutrophils (%) (Auto) 25.7 % Lymphocytes (%) (Auto) 59.6 % Monocytes (%) (Auto) 4.2 % Eosinophils (%) (Auto) 9.6 % Basophils (%) (Auto) 0.9 % Neutrophils # (Auto) 6.8 TH/MM3 Lymphocytes # (Auto) 15.9 TH/MM3 Monocytes # (Auto) 1.1 TH/MM3 Eosinophils # (Auto) 2.6 TH/MM3 Basophils # (Auto) 0.2 TH/MM3 CBC Comment AUTO DIFF Differential Total Cells Counted 100 Neutrophils % (Manual) 32 % Band Neutrophils % 1 % Lymphocytes % 53 % Monocytes % 5 % Eosinophils % 9 % Neutrophils # (Manual) 8.8 TH/MM3 Differential Comment FINAL DIFF MANUAL Smudge Cells PRESENT Platelet Estimate NORMAL Platelet Morphology Comment NORMAL Blood Urea Nitrogen 11 MG/DL Creatinine 0.59 MG/DL Random Glucose 89 MG/DL Calcium Level 9.4 MG/DL Magnesium Level 2.0 MG/DL Sodium Level 127 MEQ/L Potassium Level 3.3 MEQ/L Chloride Level 90 MEQ/L Carbon Dioxide Level 29.5 MEQ/L Anion Gap 8 MEQ/L Estimat Glomerular Filtration Rate 103 ML/MIN Troponin I LESS THAN 0.02 NG/ML B-Type Natriuretic Peptide 17 PG/ML MDM Medical Decision Making Medical Screen Exam Complete: Yes Emergency Medical Condition: Yes Medical Record Reviewed: Yes Interpretation(s) Twelve-lead EKG was reviewed by me. Normal sinus rhythm, normal axis, nonspecific ST-T wave changes. Heart rate of 86 bpm. Differential Diagnosis COPD exacerbation, pneumonia, CHF Narrative Course 12:44 AM patient received 3 duo nebs. I went back and reassessed her. Her air entry is still poor but she is coughing now and bringing out yellowish thick sputum. Blood test results are back and patient has significant leukocytosis although she has had this for past 1 year. In her a dose of Rocephin and Zithromax. I have ordered 2 more doses of albuterol but during her coughing bouts her oxygen saturation would dip down to 87-88% on 2 L of oxygen via nasal cannula. I have decided to admit her. I discussed this with the patient and she was okay with the plan. I spoke with the hospitalist has accepted the case. Critical Care Narrative Aggregate critical care time was 45 minutes. Time to perform other separately billable procedures was not included in the critical care time. My time did not include minutes spent treating any other patients simultaneously or on activities that did not directly contribute to the patient's treatment. The services I provided to this patient were to treat and/or prevent clinically significant deterioration that could result in: Respiratory distress, hypoxia, acute COPD exacerbation I provided critical care services requiring my management, as noted below: Chart data review, documentation time, medication orders and management, vital sign assessments/reviewing monitor data, ordering and reviewing lab tests, ordering and interpreting/reviewing x-rays and diagnostic studies, care of the patient and discussion of the patient with the admitting physicians. Procedures EKG Prior to Arrival: No Diagnosis Primary Impression: Acute exacerbation of chronic obstructive pulmonary disease (COPD) Additional Impressions: Leukocytosis Qualified Codes: D72.829 - Elevated white blood cell count, unspecified Hypoxia Respiratory distress Dehydration Admitting Information Admitting Physician Requests: Denver Rios MD Apr 10, 2017 22:50
[2017-04-10 22:54] VITALS: O2SAT 92
[2017-04-10] MEDS: RESP: ALBUTEROL 2.5 MG/IPRATROPIUM 0.5 MG NEB (SCH) INH (22:58)
[2017-04-10 23:00] VITALS: O2SAT 93
[2017-04-10] MEDS ORDERED: SODIUM CHLORIDE 0.9% FLUSH 10 ML FLUSH IVF PRN (23:00)
[2017-04-10] MEDS ORDERED: methylPREDNISolone SOD SUCC 125 MG/2 ML VIAL IV PUSH ONE (23:00)
--- NOTE | 2017-04-10 23:03 | RADRPT ---
EXAM DATE/TIME: 04/10/2017 22:52 [facility] COMPARISON: CHEST SINGLE AP, March 06, 2017, 21:16. INDICATIONS : Patient presents with extreme shortness of breath. MEDICAL HISTORY : Chronic obstructive pulmonary disease. Asthma SURGICAL HISTORY : None. ENCOUNTER: Initial ACUITY: 1 day PAIN SCORE: 2/10 LOCATION: upper chest FINDINGS: Stable hyperinflation. Lungs are clear. Heart size normal. Osseous structures are intact. CONCLUSION: No significant change has occurred. Jamie Herrrea MD on April 10, 2017 at 23:00 Board Certified Radiologist. This report was verified electronically.
[2017-04-10 23:40] VITALS: BP 177/103; PULSE 90; RESP 20; O2SAT 92
[2017-04-11] VITALS (12 sets, daily range): BP systolic 146–185; BP diastolic 77–97; PULSE 89–107; RESP 16–20; TEMP 96.4–98.6; O2SAT 91–94
[2017-04-11 00:10] LABS: AUTOMATED NEUTROPHIL # 6.8 TH/MM3 (1.8-7.7); BASOPHIL # 0.2 TH/MM3 (0-0.2); BASOPHIL % 0.9 % (0.0-2.0); EOSINOPHIL # 2.6 TH/MM3 (0-0.4); EOSINOPHIL % 9.6 % (0.0-4.0); HEMATOCRIT 40.3 % (35.0-46.0); HEMOGLOBIN 13.9 GM/DL (11.6-15.3); LYMPH % 59.6 % (9.0-44.0); LYMPHOCYTE # 15.9 TH/MM3 (1.0-4.8); MEAN CELL VOLUME 88.2 FL (80.0-100.0); MEAN CORPUSCULAR HEMOGLOBIN 30.5 PG (27.0-34.0); MEAN CORPUSCULAR HGB CONC 34.6 % (32.0-36.0); MEAN PLATELET VOLUME 6.4 FL (7.0-11.0); MONO % 4.2 % (0.0-8.0); MONOCYTE # 1.1 TH/MM3 (0-0.9); NEUT % 25.7 % (16.0-70.0); PLATELET COUNT 369 TH/MM3 (150-450); RED BLOOD COUNT 4.57 MIL/MM3 (4.00-5.30); RED CELL DISTRIBUTION WIDTH 12.3 % (11.6-17.2); WHITE BLOOD COUNT 26.6 TH/MM3 (4.0-11.0)
[2017-04-11 00:21] LABS: CHLORIDE 90 MEQ/L (98-107); SODIUM (NA) 127 MEQ/L (136-145)
[2017-04-11 00:25] LABS: CALCIUM 9.4 MG/DL (8.5-10.1)
[2017-04-11 00:26] LABS: BICARBONATE 29.5 MEQ/L (21.0-32.0); BLOOD UREA NITROGEN 11 MG/DL (7-18); GLUCOSE,RANDOM 89 MG/DL (74-106)
[2017-04-11 00:29] LABS: CREATININE 0.59 MG/DL (0.50-1.00); GLOMERULAR FILTRATION RATE 103 ML/MIN (>89)
[2017-04-11 00:34] LABS: TROPONIN I LESS THAN 0.02 NG/ML (0.02-0.05)
[2017-04-11] MEDS ORDERED: AZITHROMYCIN INJ 500 MG in SODIUM CHLOR 0.9% 250 ML INJ 250 ML IV ONE (00:45)
[2017-04-11] MEDS ORDERED: cefTRIAXone INJ 1,000 MG in SODIUM CHLORIDE 0.9% INJ 100 ML IV ONE (00:45)
[2017-04-11] MEDS ORDERED: POTASSIUM CHLORIDE 20 MEQ CONTROLLED RELEASE TAB PO ONE (00:45)
[2017-04-11 00:49] LABS: BANDS 1 % (0-6); LYMPHOCYTES 53 % (9-44); MONOCYTES 5 % (0-8); NEUTROPHIL # MANUAL DIFF 8.8 TH/MM3 (1.8-7.7); POLYS (SEG NEUTROPHILS) 32 % (16-70)
[2017-04-11 00:50] LABS: SMUDGE CELLS PRESENT PRESENT
[2017-04-11] MEDS: RESP: ALBUTEROL 2.5 MG/3 ML NEB (SCH) INH ×2 (00:56→00:57)
[2017-04-11] MEDS ORDERED: NALOXONE HCL 0.4 MG/ML AMP IV PUSH PRN (01:00)
[2017-04-11] MEDS ORDERED: SODIUM CHLOR 0.9% 1000 ML INJ 1,000 ML IV ONE (01:00)
[2017-04-11] MEDS ORDERED: SODIUM CHLORIDE 0.9% FLUSH 10 ML FLUSH IV FLUSH PRN (01:00)
[2017-04-11] MEDS ORDERED: RESP: ALBUTEROL 2.5 MG/IPRATROPIUM 0.5 MG NEB (SCH) NEB (04:00)
[2017-04-11] MEDS: methylPREDNISolone SOD SUCC 40 MG/1 ML VIAL IV PUSH SCH ×3 (05:51→18:47)
[2017-04-11] MEDS: RESP: ALBUTEROL 2.5 MG/IPRATROPIUM 0.5 MG NEB (PRN) NEB (08:22)
[2017-04-11] MEDS: SODIUM CHLORIDE 0.9% FLUSH 10 ML FLUSH IV FLUSH SCH ×2 (09:38→21:00)
[2017-04-11] MEDS: PANTOPRAZOLE SOD 40 MG DELAYED RELEASE TAB PO SCH (09:38)
[2017-04-11 12:20] LABS: AUTOMATED NEUTROPHIL # 7.3 TH/MM3 (1.8-7.7); BASOPHIL # 0.3 TH/MM3 (0-0.2); BASOPHIL % 1.5 % (0.0-2.0); HEMATOCRIT 37.5 % (35.0-46.0); HEMOGLOBIN 12.1 GM/DL (11.6-15.3); LYMPH % 62.5 % (9.0-44.0); LYMPHOCYTE # 14.4 TH/MM3 (1.0-4.8); MEAN CELL VOLUME 89.8 FL (80.0-100.0); MEAN CORPUSCULAR HEMOGLOBIN 28.9 PG (27.0-34.0); MEAN CORPUSCULAR HGB CONC 32.2 % (32.0-36.0); MEAN PLATELET VOLUME 6.4 FL (7.0-11.0); MONO % 4.5 % (0.0-8.0); NEUT % 31.5 % (16.0-70.0); PLATELET COUNT 367 TH/MM3 (150-450); RED BLOOD COUNT 4.18 MIL/MM3 (4.00-5.30); RED CELL DISTRIBUTION WIDTH 12.1 % (11.6-17.2)
[2017-04-11 12:46] LABS: BICARBONATE 28.3 MEQ/L (21.0-32.0); CALCIUM 8.4 MG/DL (8.5-10.1); CREATININE 0.52 MG/DL (0.50-1.00)
[2017-04-11 12:57] LABS: LYMPHOCYTES 64 % (9-44); MONOCYTES 2 % (0-8); NEUTROPHIL # MANUAL DIFF 7.8 TH/MM3 (1.8-7.7); POLYS (SEG NEUTROPHILS) 34 % (16-70)
[2017-04-11] MEDS: RESP: ALBUTEROL 2.5 MG/IPRATROPIUM 0.5 MG NEB (SCH) NEB ×2 (14:01→20:02)
--- NOTE | 2017-04-11 15:08 | HHI.HP ---
[facility] Unknown Admission Diagnosis respiratory distress, severity exacerbation, leukocytosis Diagnoses: (1) Sepsis (2) Acute exacerbation of chronic obstructive pulmonary disease (COPD) (3) Hypoxia (4) Leukocytosis Chief Complaint: Cough, dyspnea Travel History International Travel<30 Days: No Contact w/Intl Traveler <30 Da: No Traveled to Known Affected Are: No History of Present Illness The patient is a 62-year-old female with history of COPD who presented to the emergency department with worsening shortness of breath over the past week. She states that approximately 2 months ago she developed shortness of breath, which has significantly worsened over the past week. She denies chest pain. Mild cough that is nonproductive. No fever, chills, or night sweats. She has had a headache for the last day or so. States that she was diagnosed with COPD about 3-4 months ago. Review of Systems Constitutional: DENIES: Fever, Chills, Night Sweats Eyes: DENIES: Blurred vision, Vision loss Ears, nose, mouth, throat: DENIES: Hearing loss Respiratory: COMPLAINS OF: Cough, Wheezing, Shortness of breath, DENIES: Sputum production Cardiovascular: DENIES: Chest pain, Palpitations, Dyspnea on Exertion, Lower Extremity Edema Gastrointestinal: DENIES: Abdominal pain, Constipation, Diarrhea, Nausea, Vomiting Genitourinary: DENIES: Urinary frequency, Urinary incontinence, Urgency, Hematuria, Dysuria, Nocturia Musculoskeletal: DENIES: Joint pain, Muscle aches Integumentary: DENIES: Pruritus, Rash Hematologic/lymphatic: DENIES: Bruising Neurologic: DENIES: Headache Past Family Social History Past Medical History Asthma COPD Depression Osteoporosis Hypertension Past Surgical History Bilateral cataract surgery Bilateral shoulder surgery Right knee surgery Tubal ligation Reported Medications Amlodipine (Amlodipine Besylate) 5 Mg Tab 5 Mg PO DAILY Lisinopril 10 Mg Tab 10 Mg PO DAILY Ipratropium Neb (Ipratropium Needles) 0.5 Mg/2.5 Ml Amp 0.5 Mg NEB Q4HR NEB PRN Albuterol Neb (Albuterol Sulfate) 2.5 Mg/3 Ml Neb 2.5 Mg NEB Q4HR NEB PRN Ventolin Hfa 18 GM Inh (Albuterol Sulfate) 90 Mcg/Act Aer 2 Puff INH Q4-6H PRN Allergies: Coded Allergies: banana (Unverified Allergy, Severe, Swelling, 04/10/17) Patient states severe swelling and difficulty breathing phenobarbital (Unverified Allergy, Severe, SENSITIVITY, 04/10/17) Family History Diabetes Hypertension Heart disease Social History Quit smoking 6 months ago. Had smoked 1 pack per day prior to that. Occasionally drinks a few glasses of wine. Denies recent illicit drug use. Admits to prior marijuana use. Physical Exam Vital Signs Vital Signs Date Time Temp Pulse Resp B/P (MAP) Pulse Ox O2 Delivery O2 Flow Rate FiO2 04/11/17 12:24 98.6 90 16 149/84 (105) 93 04/11/17 08:42 97.6 107 16 159/87 (111) 91 04/11/17 08:24 91 Nasal Cannula 2.00 04/11/17 04:00 97.8 93 20 146/82 (103) 94 04/11/17 01:50 97.7 99 20 168/88 (114) 92 Automatic Cuff 04/11/17 01:49 104 20 177/92 (120) 94 Nasal Cannula 3.00 04/11/17 01:04 89 20 175/97 (123) 92 Nasal Cannula 3.00 04/11/17 00:42 91 20 185/92 (123) 92 Nasal Cannula 2.00 04/11/17 00:02 92 20 170/97 (121) 92 Nasal Cannula 2.00 04/10/17 23:40 90 20 177/103 (127) 92 Nasal Cannula 2.00 04/10/17 23:00 93 Nasal Cannula 2.00 04/10/17 22:54 92 Nasal Cannula 2.00 04/10/17 22:54 92 Nasal Cannula 2.00 04/10/17 22:40 90 28 87 Room Air 04/10/17 22:40 90 26 199/110 (139) 92 Nasal Cannula 1.50 04/10/17 22:19 98.4 91 24 192/95 (127) 90 Physical Exam GENERAL: Thin female in no apparent distress. SKIN: No rashes, ecchymoses or lesions. Cool and dry. HEAD: Atraumatic. Normocephalic. No temporal or scalp tenderness. EYES: Pupils equal round and reactive. Extraocular motions intact. No scleral icterus. No injection or drainage. ENT: Nose without bleeding, purulent drainage or septal hematoma. Throat without erythema, tonsillar hypertrophy or exudate. Uvula midline. Airway patent. Poor dentition. NECK: Trachea midline. No JVD or lymphadenopathy. Supple, nontender, no meningeal signs. CARDIOVASCULAR: Regular rate and rhythm without murmurs, gallops, or rubs. RESPIRATORY: Diffuse wheeze. Breathing is nonlabored. GASTROINTESTINAL: Abdomen soft, non-tender, nondistended. No hepato-splenomegaly , or palpable masses. No guarding. MUSCULOSKELETAL: Extremities without edema. No joint tenderness, effusion, or edema noted. No calf tenderness. NEUROLOGICAL: Awake and alert. Motor and sensory grossly within normal limits. Normal speech. Laboratory Laboratory Tests Test 04/10/17 23:00 04/10/17 23:50 04/11/17 12:10 Blood Gas Puncture Site RT RADIAL Blood Gas Patient Temperature 98.6 Blood Gas HCO3 27 Blood Gas Base Excess 2.6 Blood Gas Oxygen Saturation 92 Arterial Blood pH 7.41 Arterial Blood Partial Pressure CO2 43 Arterial Blood Partial Pressure O2 74 Arterial Blood Oxygen Content 17.7 Arterial Blood Carboxyhemoglobin 1.7 Arterial Blood Methemoglobin 0.9 Blood Gas Hemoglobin 13.7 Oxygen Delivery Device NASAL CANNULA Blood Gas Liter Flow 2 White Blood Count 26.6 23.0 Red Blood Count 4.57 4.18 Hemoglobin 13.9 12.1 Hematocrit 40.3 37.5 Mean Corpuscular Volume 88.2 89.8 Mean Corpuscular Hemoglobin 30.5 28.9 Mean Corpuscular Hemoglobin Concent 34.6 32.2 Red Cell Distribution Width 12.3 12.1 Platelet Count 369 367 Mean Platelet Volume 6.4 6.4 Neutrophils (%) (Auto) 25.7 31.5 Lymphocytes (%) (Auto) 59.6 62.5 Monocytes (%) (Auto) 4.2 4.5 Eosinophils (%) (Auto) 9.6 0.0 Basophils (%) (Auto) 0.9 1.5 Neutrophils # (Auto) 6.8 7.3 Lymphocytes # (Auto) 15.9 14.4 Monocytes # (Auto) 1.1 1.0 Eosinophils # (Auto) 2.6 0.0 Basophils # (Auto) 0.2 0.3 CBC Comment AUTO DIFF AUTO DIFF Differential Total Cells Counted 100 100 Neutrophils % (Manual) 32 34 Band Neutrophils % 1 Lymphocytes % 53 64 Monocytes % 5 2 Eosinophils % 9 Neutrophils # (Manual) 8.8 7.8 Differential Comment FINAL DIFF MANUAL FINAL DIFF MANUAL Smudge Cells PRESENT Platelet Estimate NORMAL NORMAL Platelet Morphology Comment NORMAL NORMAL Blood Urea Nitrogen 11 10 Creatinine 0.59 0.52 Random Glucose 89 86 Calcium Level 9.4 8.4 Magnesium Level 2.0 Sodium Level 127 132 Potassium Level 3.3 4.3 Chloride Level 90 98 Carbon Dioxide Level 29.5 28.3 Anion Gap 8 6 Estimat Glomerular Filtration Rate 103 119 Troponin I LESS THAN 0.02 B-Type Natriuretic Peptide 17 Result Diagram: 04/11/17 1210 04/11/17 1210 Imaging Last Impressions Chest X-Ray 04/10/17 2249 Signed Impressions: Service Date/Time: Monday, April 10, 2017 22:52 - CONCLUSION: No significant change has occurred. Jamie Herrera MD Caprinalon VTE Risk Assessment Caprini VTE Risk Assessment: Mod/High Risk (score >= 2) Caprini Risk Assessment Model Point Value = 1 Point Value = 2 Point Value = 3 Point Value = 5 Age 41-60 Minor surgery BMI > 25 kg/m2 Swollen legs Varicose veins or History of unexplained or recurrent spontaneous Oral contraceptives or hormone replacement Sepsis (< 1 month) Serious lung disease, including pneumonia (< 1 month) Abnormal pulmonary function Acute myocardial infarction Congestive heart failure (< 1 month) History of inflammatory bowel disease Medical patient at bed rest Age 61-74 Arthroscopic surgery Major open surgery (> 45 min) Laparoscopic surgery (> 45 min) Malignancy Confined to bed (> 72 hours) Immobilizing plaster cast Central venous access Age >= 75 History of VTE Family history of VTE Factor V Leiden Prothrombin [id number] Lupus anticoagulant Anticardiolipin antibodies Elevated serum homocysteine Heparin-induced thrombocytopenia Other congenital or acquired thrombophilia Stroke (< 1 month) Elective arthroplasty Hip, pelvis, or leg fracture Acute spinal cord injury (< 1 month) Prophylaxis Regimen Total Risk Factor Score Risk Level Prophylaxis Regimen 0-1 Low Early ambulation 2 Moderate Order ONE of the following: *Sequential Compression Device (SCD) *Heparin 5000 units SQ BID 3-4 Higher Order ONE of the following medications: *Heparin 5000 units SQ TID *Enoxaparin/Lovenox 40 mg SQ daily (WT < 150 kg, CrCl > 30 mL/min) *Enoxaparin/Lovenox 30 mg SQ daily (WT < 150 kg, CrCl > 10-29 mL/min) *Enoxaparin/Lovenox 30 mg SQ BID (WT < 150 kg, CrCl > 30 mL/min) AND/OR *Sequential Compression Device (SCD) 5 or more Highest Order ONE of the following medications: *Heparin 5000 units SQ TID (Preferred with Epidurals) *Enoxaparin/Lovenox 40 mg SQ daily (WT < 150 kg, CrCl > 30 mL/min) *Enoxaparin/Lovenox 30 mg SQ daily (WT < 150 kg, CrCl > 10-29 mL/min) *Enoxaparin/Lovenox 30 mg SQ BID (WT < 150 kg, CrCl > 30 mL/min) AND *Sequential Compression Device (SCD) Assessment and Plan Assessment and Plan 1. COPD exacerbation: Continue supplemental oxygen. Continue bronchodilators, steroids, antibiotics. 2. Sepsis: Secondary to respiratory source. Check blood cultures. Influenza testing ordered. Continue antibiotics. 3. Leukocytosis: Secondary to above. Monitor labs. 4. Hypertension: Continue amlodipine, lisinopril. 5. DVT prophylaxis: Lovenox. Problem Qualifiers (1) Leukocytosis: Qualified Codes: D72.829 - Elevated white blood cell count, unspecified Wil Trujillo MD Apr 11, 2017 15:08
[2017-04-11] MEDS: FLUTICASONE PROPIONATE 50 MCG/ACT 16 GM NASAL SPRAY EACH NARE SCH (16:00)
[2017-04-11] MEDS: CETIRIZINE HCL 10 MG TAB PO SCH (16:23)
[2017-04-11] MEDS: ENOXAPARIN SODIUM 40 MG/0.4 ML SYRINGE SQ SCH (16:24)
--- NOTE | 2017-04-11 19:16 | EKG ---
Date Performed: 04/10/2017 Time Performed: 23:38:27 PTAGE: 62 years EKG: Sinus rhythm WITH SHORT [place] INTERVAL BORDERLINE ECG Since the prior tracing, there has been no significant change PREVIOUS TRACING : 04/28/2016 20.37 DOCTOR: Xu Burnette Interpretating Date/Time 04/11/2017 19:14:50
[2017-04-12] VITALS (11 sets, daily range): BP systolic 126–168; BP diastolic 68–94; PULSE 92–117; RESP 18–20; TEMP 96.7–98.3; O2SAT 91–95
[2017-04-12] MEDS: methylPREDNISolone SOD SUCC 40 MG/1 ML VIAL IV PUSH SCH ×2 (00:26→06:10)
[2017-04-12] MEDS: RESP: ALBUTEROL 2.5 MG/IPRATROPIUM 0.5 MG NEB (PRN) NEB (03:03)
[2017-04-12] MEDS ORDERED: guaiFENesin/CODEINE SYRUP 200 MG/20 MG/10 ML CUP PO ONE (03:45)
[2017-04-12 07:02] LABS: AUTOMATED NEUTROPHIL # 12.2 TH/MM3 (1.8-7.7); BASOPHIL # 0.1 TH/MM3 (0-0.2); BASOPHIL % 0.2 % (0.0-2.0); HEMATOCRIT 38.5 % (35.0-46.0); HEMOGLOBIN 12.4 GM/DL (11.6-15.3); LYMPH % 53.1 % (9.0-44.0); LYMPHOCYTE # 14.2 TH/MM3 (1.0-4.8); MEAN CELL VOLUME 90.6 FL (80.0-100.0); MEAN CORPUSCULAR HEMOGLOBIN 29.1 PG (27.0-34.0); MEAN CORPUSCULAR HGB CONC 32.2 % (32.0-36.0); MEAN PLATELET VOLUME 6.6 FL (7.0-11.0); MONO % 1.7 % (0.0-8.0); MONOCYTE # 0.5 TH/MM3 (0-0.9); PLATELET COUNT 362 TH/MM3 (150-450); RED BLOOD COUNT 4.25 MIL/MM3 (4.00-5.30); RED CELL DISTRIBUTION WIDTH 12.5 % (11.6-17.2)
[2017-04-12 07:08] LABS: CALCIUM 8.4 MG/DL (8.5-10.1)
[2017-04-12 07:09] LABS: BICARBONATE 27.7 MEQ/L (21.0-32.0)
[2017-04-12 07:12] LABS: CREATININE 0.51 MG/DL (0.50-1.00)
[2017-04-12] MEDS: RESP: ALBUTEROL 2.5 MG/IPRATROPIUM 0.5 MG NEB (SCH) NEB ×3 (07:30→19:33)
[2017-04-12 07:42] LABS: LYMPHOCYTES 55 % (9-44); MONOCYTES 2 % (0-8); NEUTROPHIL # MANUAL DIFF 11.6 TH/MM3 (1.8-7.7); POLYS (SEG NEUTROPHILS) 43 % (16-70)
[2017-04-12] MEDS: FLUTICASONE PROPIONATE 50 MCG/ACT 16 GM NASAL SPRAY EACH NARE SCH (09:00)
[2017-04-12] MEDS: CETIRIZINE HCL 10 MG TAB PO SCH (09:41)
[2017-04-12] MEDS: PANTOPRAZOLE SOD 40 MG DELAYED RELEASE TAB PO SCH (09:41)
[2017-04-12] MEDS: amLODIPine BESYLATE 5 MG TAB PO SCH (09:41)
[2017-04-12] MEDS: LISINOPRIL 10 MG TAB PO SCH (09:41)
[2017-04-12] MEDS: AZITHROMYCIN 250 MG TAB PO SCH (09:44)
--- NOTE | 2017-04-12 10:10 | HHI.PR ---
Subjective Remarks Nursing denies any deterioration since last night. Patient herself says that upon physical therapy session this morning she was doing well with ambulation until she had a very severe coughing spell. Patient says that she has not had a controller inhaled corticosteroid for a while due to insurance issues. Objective Vital Signs Date Time Temp Pulse Resp B/P (MAP) Pulse Ox O2 Delivery O2 Flow Rate FiO2 04/12/17 08:00 100 04/12/17 07:50 98.1 101 20 163/79 (107) 92 04/12/17 07:33 94 Nasal Cannula 2.00 04/12/17 04:00 96.7 92 18 141/94 (110) 95 04/12/17 00:00 98.3 101 18 168/79 (108) 91 04/11/17 20:09 101 04/11/17 20:02 92 Nasal Cannula 2.00 04/11/17 20:00 96.4 98 18 159/77 (104) 92 04/11/17 12:24 98.6 90 16 149/84 (105) 93 I/O 04/11/17 04/11/17 04/11/17 04/12/17 04/12/17 04/12/17 07:00 15:00 23:00 07:00 15:00 23:00 Intake Total 1590 ml 960 ml Balance 1590 ml 960 ml Intake Oral 240 ml 960 ml IV Total 1350 ml # Voids 3 2 3 # Bowel Movements 0 Result Diagram: 04/12/17 0625 04/12/17 0625 Objective Remarks Slightly diminished breath sounds in the bases, otherwise breath sounds are clear, very minimally labored breathing at rest, does have a coughing spell in front of me that is quite severe A/P Assessment and Plan 1. COPD exacerbation: Continue supplemental oxygen. We will increase steroid dosing for now, will wean down steroids tomorrow, continue with Rocephin. Continue bronchodilators, steroids, antibiotics. 2. Sepsis: Secondary to respiratory source. Blood cultures pending, no fevers. Pro-calcitonin ordered, if negative can discontinue antibiotics 3. Leukocytosis: Secondary to above. Monitor labs. 4. Hypertension: Continue amlodipine, lisinopril. Adding on Vasotec as needed for uncontrolled blood pressures 5. DVT prophylaxis: Lovenox. Chris Steven MD Apr 12, 2017 10:10
[2017-04-12] MEDS: RESP: BUDESONIDE 0.25 MG/2 ML NEB NEB SCH ×2 (10:15→19:33)
[2017-04-12] MEDS ORDERED: ENALAPRILAT 1.25 MG/ML VIAL IV PUSH PRN (10:15)
[2017-04-12] MEDS: methylPREDNISolone SOD SUCC 125 MG/2 ML VIAL IV PUSH SCH ×2 (13:22→22:47)
[2017-04-12] MEDS: cefTRIAXone INJ 1,000 MG in SODIUM CHLORIDE 0.9% INJ 100 ML IV SCH (13:26)
[2017-04-12] MEDS: SODIUM CHLORIDE 0.9% FLUSH 10 ML FLUSH IV FLUSH SCH ×2 (13:26→22:48)
[2017-04-12] MEDS: PROMETHAZINE/CODEINE 6.25 MG/10 MG/5 ML CUP PO PRN (13:34)
[2017-04-12] MEDS: ENOXAPARIN SODIUM 40 MG/0.4 ML SYRINGE SQ SCH (16:00)
[2017-04-13] VITALS (10 sets, daily range): BP systolic 134–160; BP diastolic 73–88; PULSE 90–107; RESP 18–20; TEMP 96.7–98.4; O2SAT 89–95
[2017-04-13] MEDS: RESP: ALBUTEROL 2.5 MG/IPRATROPIUM 0.5 MG NEB (PRN) NEB (02:26)
[2017-04-13] MEDS: PROMETHAZINE/CODEINE 6.25 MG/10 MG/5 ML CUP PO PRN ×2 (02:49→08:16)
[2017-04-13] MEDS: methylPREDNISolone SOD SUCC 125 MG/2 ML VIAL IV PUSH SCH (06:19)
[2017-04-13] MEDS: amLODIPine BESYLATE 5 MG TAB PO SCH (07:51)
[2017-04-13] MEDS: FLUTICASONE PROPIONATE 50 MCG/ACT 16 GM NASAL SPRAY EACH NARE SCH (07:51)
[2017-04-13] MEDS: AZITHROMYCIN 250 MG TAB PO SCH (07:51)
[2017-04-13] MEDS: PANTOPRAZOLE SOD 40 MG DELAYED RELEASE TAB PO SCH (07:51)
[2017-04-13] MEDS: LISINOPRIL 10 MG TAB PO SCH (07:51)
[2017-04-13] MEDS: CETIRIZINE HCL 10 MG TAB PO SCH (07:51)
[2017-04-13] MEDS: SODIUM CHLORIDE 0.9% FLUSH 10 ML FLUSH IV FLUSH SCH (07:52)
[2017-04-13] MEDS: RESP: BUDESONIDE 0.25 MG/2 ML NEB NEB SCH (07:53)
[2017-04-13] MEDS: RESP: ALBUTEROL 2.5 MG/IPRATROPIUM 0.5 MG NEB (SCH) NEB ×2 (07:53→14:05)
[2017-04-13] MEDS: cefTRIAXone INJ 1,000 MG in SODIUM CHLORIDE 0.9% INJ 100 ML IV SCH (10:49)
[2017-04-13] MEDS ORDERED: LIDOCAINE HCL 5% PATCH T-DERMAL SCH (12:15)
[2017-04-13] MEDS ORDERED: methylPREDNISolone SOD SUCC 125 MG/2 ML VIAL IV PUSH SCH (14:00)
[2017-04-13] MEDS ORDERED: PRED20 PO (14:56)
[2017-04-13] MEDS ORDERED: SYMB80AE INH (14:56)
[2017-04-13] MEDS ORDERED: PROM6.256 PO (14:56)
--- NOTE | 2017-04-13 14:57 | HHI.DCPOC ---
Discharge Care Plan Diagnosis: (1) Acute exacerbation of chronic obstructive pulmonary disease (COPD) (2) Respiratory distress Goals to Promote Your Health * To prevent worsening of your condition and complications * To maintain your health at the optimal level Directions to Meet Your Goals Take your medications as prescribed Follow your dietary instruction Follow activity as directed Keep your appointments as scheduled Take your immunizations and boosters as scheduled If your symptoms worsen call your PCP, if no PCP go to Urgent Care Center or Emergency Room Smoking is Dangerous to Your Health. Avoid second hand smoke Call the 24-hour hour crisis hotline for domestic abuse at Chris Steven MD Apr 13, 2017 14:57
[2017-04-13] MEDS ORDERED: LIDO1PAD52 TOPICAL (14:59)
--- NOTE | 2017-04-13 14:59 | HHI.DS ---
Discharge Summary Admission Date Apr 11, 2017 at 10:34 Discharge Date: Apr 13, 2017 Admitting Diagnosis respiratory distress, severity exacerbation, leukocytosis (1) Sepsis ICD Code: A41.9 - Sepsis, unspecified organism (2) Acute exacerbation of chronic obstructive pulmonary disease (COPD) ICD Code: J44.1 - Chronic obstructive pulmonary disease with (acute) exacerbation Status: Acute (3) Hypoxia ICD Code: R09.02 - Hypoxemia Status: Acute (4) Leukocytosis ICD Code: D72.829 - Elevated white blood cell count, unspecified Status: Acute Procedures none Brief History - From Admission The patient is a 62-year-old female with history of COPD who presented to the emergency department with worsening shortness of breath over the past week. She states that approximately 2 months ago she developed shortness of breath, which has significantly worsened over the past week. She denies chest pain. Mild cough that is nonproductive. No fever, chills, or night sweats. She has had a headache for the last day or so. States that she was diagnosed with COPD about 3-4 months ago. CBC/BMP: 04/12/17 0625 04/12/17 0625 Significant Findings Laboratory Tests Test 04/10/17 23:00 04/10/17 23:50 04/11/17 12:10 04/12/17 06:25 Blood Gas HCO3 27 mmol/L (22-26) Blood Gas Base Excess 2.6 mmol/L (-2-2) Arterial Blood Partial Pressure CO2 43 mmHG (38-42) White Blood Count 26.6 TH/MM3 (4.0-11.0) 23.0 TH/MM3 (4.0-11.0) 27.0 TH/MM3 (4.0-11.0) Mean Platelet Volume 6.4 FL (7.0-11.0) 6.4 FL (7.0-11.0) 6.6 FL (7.0-11.0) Lymphocytes (%) (Auto) 59.6 % (9.0-44.0) 62.5 % (9.0-44.0) 53.1 % (9.0-44.0) Eosinophils (%) (Auto) 9.6 % (0.0-4.0) Lymphocytes # (Auto) 15.9 TH/MM3 (1.0-4.8) 14.4 TH/MM3 (1.0-4.8) 14.2 TH/MM3 (1.0-4.8) Monocytes # (Auto) 1.1 TH/MM3 (0-0.9) 1.0 TH/MM3 (0-0.9) Eosinophils # (Auto) 2.6 TH/MM3 (0-0.4) Lymphocytes % 53 % (9-44) 64 % (9-44) 55 % (9-44) Eosinophils % 9 % (0-4) Neutrophils # (Manual) 8.8 TH/MM3 (1.8-7.7) 7.8 TH/MM3 (1.8-7.7) 11.6 TH/MM3 (1.8-7.7) Sodium Level 127 MEQ/L (136-145) 132 MEQ/L (136-145) 135 MEQ/L (136-145) Potassium Level 3.3 MEQ/L (3.5-5.1) Chloride Level 90 MEQ/L (98-107) Troponin I LESS THAN 0.02 NG/ML Basophils # (Auto) 0.3 TH/MM3 (0-0.2) Calcium Level 8.4 MG/DL (8.5-10.1) 8.4 MG/DL (8.5-10.1) Neutrophils # (Auto) 12.2 TH/MM3 (1.8-7.7) Random Glucose 128 MG/DL (74-106) Imaging Last Impressions Chest X-Ray 04/10/17 3657 Signed Impressions: Service Date/Time: Monday, April 10, 2017 22:52 - CONCLUSION: No significant change has occurred. Jamie Herrera MD PE at Discharge Mild wheezing heard on expiration, good aeration otherwise Unlabored respiratory effort, no cyanosis Hospital Course Patient was admitted, started on oxygen and antibiotics and steroids. As well as DuoNeb treatments. Her respiratory status eventually improved over the next 2 days and she was able to be weaned down to room air. Patient's respiratory distress also resolved. She did have significant pain with cough induced costochondritis and this was controlled. Patient was counseled on the importance of following up with the primary care provider. Patient has no maximal benefit from hospitalization is clinically stable for discharge. Pt Condition on Discharge: Stable Discharge Disposition: Discharge Home Discharge Time: <= 30 minutes Discharge Instructions DIET: Follow Instructions for: As Tolerated, No Restrictions Activities you can perform: Regular-No Restrictions Follow up Referrals: PCP Follow-up - 1 Week New Medications: Budesonide-Formoterol Inh (Symbicort Inh) 80-4.5 Mcg/Act Aero 2 PUFF INH Q12HR for Asthma Management, #1 INHALER 0 Refills Prednisone (Prednisone) 20 Mg Tab 20 MG PO DIRECTED for Inflammation, #15 TAB 0 Refills 40 MG once a day x 3 days, then 20 MG daily x 3 days, then 10 MG daily x 3 days Promethazine-Codeine Liq (Promethazine-Codeine Liq) 6.25-10 Mg/5 Ml Syrp 10 ML PO Q6H PRN for cough, #240 ML 0 Refills Continued Medications: Albuterol 18 GM Inh (Ventolin Hfa 18 GM Inh) 90 Mcg/Act Aer 2 PUFF INH Q4-6H PRN for SHORTNESS OF BREATH, #1 INHALER 0 Refills Albuterol Neb (Albuterol Neb) 2.5 Mg/3 Ml Neb 2.5 MG NEB Q4HR NEB PRN for SHORTNESS OF BREATH, #60 NEBULE 0 Refills Amlodipine (Amlodipine) 5 Mg Tab 5 MG PO DAILY for Blood Pressure Management, #30 TAB 0 Refills Ipratropium Neb (Ipratropium Neb) 0.5 Mg/2.5 Ml Amp 0.5 MG NEB Q4HR NEB PRN for SHORTNESS OF BREATH, #60 NEBULE 0 Refills Lisinopril (Lisinopril) 10 Mg Tab 10 MG PO DAILY, #30 TAB 0 Refills Chris Steven MD Apr 13, 2017 14:59
[2017-04-13] MEDS: ENOXAPARIN SODIUM 40 MG/0.4 ML SYRINGE SQ SCH (16:50)
[2017-04-13] MEDS ORDERED: predniSONE 50 MG TAB PO ONE (18:00)
[2017-04-13] MEDS ORDERED: REMOVE OLD LIDOCAINE PATCH T-DERMAL SCH (21:00)
== END 2017-04-13 18:30 | disposition home or self-care (01) | DRG 872 ==
LOC: PHED 21:28 → PHEDA 04-11 00:48 → PH3B 04-11 01:46 → OBSVTOIN 04-11 10:34
PROVIDERS: ADMIT Hospitalist; ATTEND Hospitalist
DX: A41.9 Sepsis, unspecified organism (principal); J44.1 Chronic obstructive pulmonary disease with (acute) exacerbation; I10 Essential (primary) hypertension; E86.0 Dehydration; M81.0 Age-related osteoporosis without current pathological fracture; R51 Headache; Z87.891 Personal history of nicotine dependence; R09.02 Hypoxemia
CPT/HCPCS: 36600; 71045; 80048; 82805; 83735; 83880; 84484; 85007; 85027; 87040; 87804; 93005; 94640; 94664; 96374; G8987-GP; G8988-GP; J0456; J0696; J1650; J2920; J2930; J7030; J7050; J7512; J7613; J7626

== ENCOUNTER 2017-05-24 16:04 | Emergency (ER) | payer SELFPAY ==
[~2017-05-24] VITALS: Ht 165.1 cm; Wt 43.8 kg
[~2017-05-24 16:04] MED LIST changes: +LIDO1PAD52 TOPICAL; +PRED20 PO; +PROM6.256 PO; +SYMB80AE INH
[2017-05-24 16:15] VITALS: BP 194/97; PULSE 102; RESP 22; TEMP 98.3; O2SAT 90
[2017-05-24 16:25] VITALS: RESP 22; O2SAT 97
--- NOTE | 2017-05-24 16:38 | PD ---
HPI . Dyspnea Chief Complaint: Respiratory Symptoms Time Seen by Provider: 16:28 Travel History International Travel<30 days: No Contact w/Intl Traveler<30days: No History of Present Illness HPI This patient presents with a chief complaint of dyspnea. Onset was about 2 weeks ago which is, coincidentally, about the same time that she ran out of all of her medications. Symptoms have been getting progressively worse. Symptoms are now moderate. She has a history of COPD. She is not running a fever and does not have a productive cough. PFSH Past Medical History Asthma: Yes Depression: Yes COPD: Yes Diminished Hearing: No Musculoskeletal: Yes (OSTEOPOROSIS) Respiratory: Yes (copd) PNEUMOCCOCAL Vaccine (Year): 3 Menopausal: Yes Tubal Ligation: Yes Past Surgical History Eye Surgery: Yes (jorge luis cataract/lens implant) Pacemaker: No Social History Alcohol Use: Yes (FEW GLASSES DAILY) Tobacco Use: No (1 ppd ) Substance Use: No Allergies-Medications (Allergen,Severity, Reaction): Coded Allergies: banana (Unverified Allergy, Severe, Swelling, 05/24/17) Patient states severe swelling and difficulty breathing phenobarbital (Unverified Allergy, Severe, SENSITIVITY, 05/24/17) bacitracin (Verified Allergy, Intermediate, severe rash, 05/24/17) neomycin (Verified Allergy, Intermediate, severe rash, 05/24/17) polymyxin B (Verified Allergy, Intermediate, severe rash, 05/24/17) Reported Meds & Prescriptions Reported Meds & Active Scripts Active Lidocaine Patch 12 HR (Lidocaine) 5 % Patch 1 Patch TOPICAL DAILY PRN Remove patch after 12 hours Promethazine-Codeine Liq 6.25-10 Mg/5 Ml Syrp 10 Ml PO Q6H PRN Symbicort Inh (Budesonide/Formoterol Fumarate) 80-4.5 Mcg/Act Aero 2 Puff INH Q12HR Prednisone 20 Mg Tab 20 Mg PO DIRECTED 40 MG once a day x 3 days, then 20 MG daily x 3 days, then 10 MG daily x 3 days Amlodipine (Amlodipine Besylate) 5 Mg Tab 5 Mg PO DAILY Lisinopril 10 Mg Tab 10 Mg PO DAILY Ipratropium Neb (Ipratropium [place]) 0.5 Mg/2.5 Ml Amp 0.5 Mg NEB Q4HR NEB PRN Albuterol Neb (Albuterol Sulfate) 2.5 Mg/3 Ml Neb 2.5 Mg NEB Q4HR NEB PRN Ventolin Hfa 18 GM Inh (Albuterol Sulfate) 90 Mcg/Act Aer 2 Puff INH Q4-6H PRN Review of Systems Except as stated in HPI: all other systems reviewed are Neg Respiratory: Positive: Shortness of Breath, Wheezing Physical Exam Narrative GENERAL: Patient is sitting upright on the stretcher. SKIN: warm/dry. Normal color. HEAD: Normocephalic. Atraumatic. EYES: Pupils equal and round. No scleral icterus. No injection or drainage. ENT: No nasal bleeding or discharge. Mucous membranes pink and moist. NECK: Trachea midline. Full range of motion without pain.. CARDIOVASCULAR: Regular rate and rhythm. Heart sounds normal. RESPIRATORY: Diminished breath sounds. Positive use of accessory muscles. She is sitting straight up in bed. She has diffuse I&E wheezing. MUSCULOSKELETAL: No obvious deformities. NEUROLOGICAL: Awake and alert. No obvious cranial nerve deficits. Motor grossly within normal limits. Normal speech. PSYCHIATRIC: Appropriate mood and affect; insight and judgment normal. Data Data Last Documented VS Vital Signs Date Time Temp Pulse Resp B/P (MAP) Pulse Ox O2 Delivery O2 Flow Rate FiO2 05/24/17 17:18 96 20 158/94 (115) 97 Nasal Cannula 2.00 05/24/17 16:15 98.3 Orders Orders Complete Blood Count With Diff (05/24/17 16:32) Basic Metabolic Panel (Bmp) (05/24/17 16:32) Iv Access Insert/Monitor (05/24/17 16:32) Ecg Monitoring (05/24/17 16:32) Oximetry (05/24/17 16:32) Oxygen Administration (05/24/17 16:32) Chest, Single Ap (05/24/17 16:32) Sodium Chloride 0.9% Flush (Ns Flush) (05/24/17 16:45) Methylprednisolone So Succ Inj (Solumedr (05/24/17 16:45) Albuterol-Ipratropium Neb (Duoneb Neb) (05/24/17 16:45) Albuterol-Ipratropium Neb (Duoneb Neb) (05/24/17 17:45) Labs Laboratory Tests Test 05/24/17 17:05 White Blood Count 31.0 TH/MM3 Red Blood Count 4.18 MIL/MM3 Hemoglobin 12.4 GM/DL Hematocrit 37.8 % Mean Corpuscular Volume 90.4 FL Mean Corpuscular Hemoglobin 29.7 PG Mean Corpuscular Hemoglobin Concent 32.9 % Red Cell Distribution Width 13.0 % Platelet Count 462 TH/MM3 Mean Platelet Volume 6.1 FL Neutrophils (%) (Auto) 21.6 % Lymphocytes (%) (Auto) 71.5 % Monocytes (%) (Auto) 3.2 % Eosinophils (%) (Auto) 3.1 % Basophils (%) (Auto) 0.6 % Neutrophils # (Auto) 6.7 TH/MM3 Lymphocytes # (Auto) 22.1 TH/MM3 Monocytes # (Auto) 1.0 TH/MM3 Eosinophils # (Auto) 1.0 TH/MM3 Basophils # (Auto) 0.2 TH/MM3 CBC Comment AUTO DIFF Blood Urea Nitrogen 8 MG/DL Creatinine 0.66 MG/DL Random Glucose 102 MG/DL Calcium Level 8.9 MG/DL Sodium Level 131 MEQ/L Potassium Level 3.7 MEQ/L Chloride Level 95 MEQ/L Carbon Dioxide Level 31.8 MEQ/L Anion Gap 4 MEQ/L Estimat Glomerular Filtration Rate 91 ML/MIN [facility] Medical Decision Making Medical Screen Exam Complete: Yes Emergency Medical Condition: Yes Medical Record Reviewed: Yes (Patient was admitted here in mid March for sepsis and COPD exacerbation. She was treated with antibiotics, steroids, nebs and oxygen. The patient had leukocytosis with her previous admission.) Differential Diagnosis Differential diagnosis of dyspnea includes but is not limited to congestive heart failure, pneumonia, wheezing, pneumothorax, pulmonary embolism Narrative Course This patient presents with increasing dyspnea over the last 2 weeks. She has COPD. She is out of all of her medications. We will start with Solu-Medrol and stacked duo nebs. Last Impressions Chest X-Ray 05/24/17 1632 Signed Impressions: Service Date/Time: Wednesday, May 24, 2017 16:33 - CONCLUSION: No acute pulmonary infiltrates. Huy Ovalle MD Chest x-ray was independently reviewed by me. CBC & BMP Diagram 05/24/17 17:05 Calcium Level 8.9 The patient reports that her breathing is markedly improved. On repeat examination she does have improved air movement but her air movement is still poor. I will give her another set of stacked nebs and then plan to discharge her with prescriptions. Diagnosis Primary Impression: Dyspnea Qualified Codes: R06.00 - Dyspnea, unspecified Additional Impressions: COPD exacerbation Leukocytosis Qualified Codes: D72.820 - Lymphocytosis (symptomatic) Referrals: [facility] Patient Instructions: COPD (Chronic Obstructive Pulmonary Disease) (DC), General Instructions Med/Other Pt SpecificInfo: Prescription(s) given Scripts Budesonide-Formoterol Inh (Symbicort Inh) 80-4.5 Mcg/Act Aero 2 PUFF INH Q12HR for Asthma Management, #1 INHALER 0 Refills Prov: Carolyn Patterson MD 05/24/17 Prednisone (Prednisone) 20 Mg Tab 20 MG PO DIRECTED for Inflammation, #15 TAB 0 Refills 40 MG once a day x 3 days, then 20 MG daily x 3 days, then 10 MG daily x 3 days Prov: Caroyln Patterson MD 05/24/17 Amlodipine (Amlodipine) 5 Mg Tab 5 MG PO DAILY for Blood Pressure Management, #30 TAB 0 Refills Prov: Carolyn Patterson MD 05/24/17 Lisinopril (Lisinopril) 10 Mg Tab 10 MG PO DAILY, #30 TAB 0 Refills Prov: Carolyn Patterson MD 05/24/17 Ipratropium Neb (Ipratropium Neb) 0.5 Mg/2.5 Ml Amp 0.5 MG NEB Q4HR NEB Y for SHORTNESS OF BREATH, #60 NEBULE 0 Refills Prov: Carolyn Patterson MD 05/24/17 Albuterol Neb (Albuterol Neb) 2.5 Mg/3 Ml Neb 2.5 MG NEB Q4HR NEB Y for SHORTNESS OF BREATH, #60 NEBULE 0 Refills Prov: Carolyn Patterson MD 05/24/17 Albuterol 18 GM Inh (Ventolin Hfa 18 GM Inh) 90 Mcg/Act Aer 2 PUFF INH Q4-6H Y for SHORTNESS OF BREATH, #1 INHALER 0 Refills Prov: Carolyn Patterson MD 05/24/17 Disposition: 01 DISCHARGE HOME Condition: Stable Carolyn Patterson MD May 24, 2017 16:38
[2017-05-24] MEDS ORDERED: SODIUM CHLORIDE 0.9% FLUSH 10 ML FLUSH IVF PRN (16:45)
[2017-05-24] MEDS ORDERED: methylPREDNISolone SOD SUCC 125 MG/2 ML VIAL IV PUSH ONE (16:45)
--- NOTE | 2017-05-24 16:45 | RADRPT ---
EXAM DATE/TIME: 05/24/2017 16:33 [facility] COMPARISON: CHEST SINGLE AP, April 10, 2017, 22:52. INDICATIONS : Cough, shortness of breath for 2 weeks MEDICAL HISTORY : Chronic obstructive pulmonary disease. Asthma SURGICAL HISTORY : None. ENCOUNTER: Initial ACUITY: 2 weeks PAIN SCORE: 5/10 LOCATION: Bilateral chest FINDINGS: A single view of the chest demonstrates hyperaeration of both lung riggs. Stable pleural/parenchymal changes are noted in both upper lungs. No acute infiltrates are seen.. No evidence of pneumothorax. The cardiomediastinal contours are unremarkable. Osseous structures are intact. CONCLUSION: No acute pulmonary infiltrates. Huy Ovalle MD on May 24, 2017 at 16:42 Board Certified Radiologist. This report was verified electronically.
[2017-05-24 16:47] VITALS: O2SAT 97
[2017-05-24] MEDS: RESP: ALBUTEROL 2.5 MG/IPRATROPIUM 0.5 MG NEB (SCH) INH ×4 (16:47→17:51)
[2017-05-24 17:15] LABS: AUTOMATED NEUTROPHIL # 6.7 TH/MM3 (1.8-7.7); BASOPHIL # 0.2 TH/MM3 (0-0.2); BASOPHIL % 0.6 % (0.0-2.0); EOSINOPHIL % 3.1 % (0.0-4.0); HEMATOCRIT 37.8 % (35.0-46.0); HEMOGLOBIN 12.4 GM/DL (11.6-15.3); LYMPH % 71.5 % (9.0-44.0); LYMPHOCYTE # 22.1 TH/MM3 (1.0-4.8); MEAN CELL VOLUME 90.4 FL (80.0-100.0); MEAN CORPUSCULAR HEMOGLOBIN 29.7 PG (27.0-34.0); MEAN CORPUSCULAR HGB CONC 32.9 % (32.0-36.0); MEAN PLATELET VOLUME 6.1 FL (7.0-11.0); MONO % 3.2 % (0.0-8.0); NEUT % 21.6 % (16.0-70.0); PLATELET COUNT 462 TH/MM3 (150-450); RED BLOOD COUNT 4.18 MIL/MM3 (4.00-5.30)
[2017-05-24 17:18] VITALS: BP 158/94; PULSE 96; RESP 20; O2SAT 97
[2017-05-24 17:28] LABS: CALCIUM 8.9 MG/DL (8.5-10.1)
[2017-05-24 17:29] LABS: BICARBONATE 31.8 MEQ/L (21.0-32.0)
[2017-05-24 17:33] LABS: CREATININE 0.66 MG/DL (0.50-1.00)
[2017-05-24 18:00] VITALS: BP 166/81; PULSE 93; RESP 22; O2SAT 96
[2017-05-24] MEDS ORDERED: AMLO5TAB2 PO (18:17)
[2017-05-24] MEDS ORDERED: IPRA0.02 NEB (18:17)
[2017-05-24] MEDS ORDERED: SYMB80AE INH (18:17)
[2017-05-24] MEDS ORDERED: PRED20 PO (18:17)
[2017-05-24] MEDS ORDERED: ALBU0.08 NEB (18:17)
[2017-05-24] MEDS ORDERED: VENTAER INH (18:17)
[2017-05-24] MEDS ORDERED: LISI10TA3 PO (18:17)
[2017-05-24 18:30] VITALS: BP 166/89; PULSE 99; RESP 20
[2017-05-24 18:31] LABS: LYMPHOCYTES 66 % (9-44); MONOCYTES 2 % (0-8); POLYS (SEG NEUTROPHILS) 29 % (16-70)
== END 2017-05-24 19:13 | disposition home or self-care (01) ==
LOC: PHED 16:04
DX: J44.1 Chronic obstructive pulmonary disease with (acute) exacerbation (principal); D72.829 Elevated white blood cell count, unspecified; F32.9 Major depressive disorder, single episode, unspecified; M81.0 Age-related osteoporosis without current pathological fracture
CPT/HCPCS: 71045; 80048; 85007; 85027; 94640; 94664; 96374; 99284; J2930

== ENCOUNTER 2017-07-04 12:34 | Inpatient (IN) | payer SELFPAY ==
[2017-07-04] VITALS (7 sets, daily range): BP systolic 157–183; BP diastolic 89–94; PULSE 84–129; RESP 16–28; TEMP 96–98.8; O2SAT 91–100
[~2017-07-04] VITALS: Ht 165.1 cm; Wt 70.7 kg
[~2017-07-04 12:34] MED LIST changes: -LIDO1PAD52 TOPICAL; -PRED20 PO; -PROM6.256 PO
[2017-07-04] MEDS ORDERED: SODIUM CHLOR 0.9% 1000 ML INJ 1,000 ML IV ONE ×2 (12:52)
[2017-07-04] MEDS ORDERED: SODIUM CHLOR 0.9% 1000 ML INJ 400 ML IV ONE (12:52)
[2017-07-04] MEDS ORDERED: RESP: ALBUTEROL 2.5 MG/IPRATROPIUM 0.5 MG NEB (PRN) ONE (12:57)
[2017-07-04] MEDS ORDERED: methylPREDNISolone SOD SUCC 125 MG/2 ML VIAL IV PUSH ONE (13:00)
[2017-07-04] MEDS: RESP: ALBUTEROL 2.5 MG/IPRATROPIUM 0.5 MG NEB (SCH) INH ×2 (13:02→13:03)
--- NOTE | 2017-07-04 13:15 | PD ---
HPI Chief Complaint: Respiratory Symptoms Time Seen by Provider: 12:52 Travel History International Travel<30 days: No Contact w/Intl Traveler<30days: No Traveled to known affect area: No History of Present Illness HPI Patient is a 62-year-old female with history of COPD, presents the emergency room with complaints of productive cough with short of breath for the past 2 weeks. Patient reports that she is a past smoker, reports that she quit smoking in October. Patient reports that 2 weeks ago, she was around some cleaning fumes which caused her to have wheezing. Patient reports that she did run out of her albuterol and was not able to get herself to treatment. Patient reports that for the past 2 weeks, she has been short of breath, reports that she had a wheeze with a productive cough. Denies fevers or chills, denies nausea vomiting. Patient has not been around any sick contacts. Patient does not use home O2 at home PFSH Past Medical History Asthma: Yes Anxiety: Yes Depression: Yes Cardiovascular Problems: Yes (htn on meds) COPD: Yes Diminished Hearing: No Hypertension: Yes Musculoskeletal: Yes (OSTEOPOROSIS) Respiratory: Yes PNEUMOCCOCAL Vaccine (Year): 3 Menopausal: Yes Tubal Ligation: Yes Past Surgical History Eye Surgery: Yes (cataract both eyes) Pacemaker: No Tonsillectomy: Yes Social History Alcohol Use: Yes (occas. wine) Tobacco Use: No (quit 8 months ago smoked 20 yrs ago, smoked 1 ppd ) Substance Use: No Allergies-Medications (Allergen,Severity, Reaction): Coded Allergies: banana (Unverified Allergy, Severe, Swelling, 07/04/17) Patient states severe swelling and difficulty breathing phenobarbital (Unverified Allergy, Severe, SENSITIVITY, 07/04/17) bacitracin (Verified Allergy, Intermediate, severe rash, 07/04/17) neomycin (Verified Allergy, Intermediate, severe rash, 07/04/17) polymyxin B (Verified Allergy, Intermediate, severe rash, 07/04/17) Reported Meds & Prescriptions Reported Meds & Active Scripts Active Symbicort Inh (Budesonide/Formoterol Fumarate) 80-4.5 Mcg/Act Aero 2 Puff INH Q12HR Amlodipine (Amlodipine Besylate) 5 Mg Tab 5 Mg PO DAILY Lisinopril 10 Mg Tab 10 Mg PO DAILY Ipratropium Neb (Ipratropium [place]) 0.5 Mg/2.5 Ml Amp 0.5 Mg NEB Q4HR NEB PRN Albuterol Neb (Albuterol Sulfate) 2.5 Mg/3 Ml Neb 2.5 Mg NEB Q4HR NEB PRN Ventolin Hfa 18 GM Inh (Albuterol Sulfate) 90 Mcg/Act Aer 2 Puff INH Q4-6H PRN Review of Systems General / Constitutional: No: Fever Eyes: No: Visual changes HENT: No: Headaches Cardiovascular: Positive: Chest Pain or Discomfort Respiratory: Positive: Cough, Shortness of Breath, Wheezing Gastrointestinal: No: Abdominal Pain Genitourinary: No: Dysuria Musculoskeletal: No: Pain Skin: No Rash Neurologic: No: Weakness Psychiatric: No: Depression Endocrine: No: Polydipsia Hematologic/Lymphatic: No: Easy Bruising Physical Exam Narrative GENERAL: Moderate distress SKIN: Focused skin assessment warm/dry. HEAD: Atraumatic. Normocephalic. EYES: Pupils equal and round. No scleral icterus. No injection or drainage. ENT: No nasal bleeding or discharge. Mucous membranes pink and moist. NECK: Trachea midline. No JVD. CARDIOVASCULAR: Tachycardia. No murmur appreciated. RESPIRATORY: Patient with accessory muscle use. Patient with diffuse wheezing on exam GASTROINTESTINAL: Abdomen soft, non-tender, nondistended. Hepatic and splenic margins not palpable. MUSCULOSKELETAL: No obvious deformities. No clubbing. No cyanosis. No edema. NEUROLOGICAL: Awake and alert. No obvious cranial nerve deficits. Motor grossly within normal limits. Normal speech. PSYCHIATRIC: Anxious mood and affect; insight and judgment normal. Data Data Last Documented VS Vital Signs Date Time Temp Pulse Resp B/P (MAP) Pulse Ox O2 Delivery O2 Flow Rate FiO2 07/04/17 12:55 96 Nasal Cannula 2.00 07/04/17 12:36 98.8 129 28 180/94 (122) Orders Orders Sepsis Workup Initiated (07/04/17 ) Complete Blood Count With Diff (07/04/17 12:52) Comprehensive Metabolic Panel (07/04/17 12:52) Prothrombin Time / Inr (Pt) (07/04/17 12:52) Act Partial Throm Time (Ptt) (07/04/17 12:52) Lactic Acid Sepsis Protocol (07/04/17 12:52) Magnesium (Mg) (07/04/17 12:52) Ckmb (Isoenzyme) Profile (07/04/17 12:52) Troponin I (07/04/17 12:52) Urinalysis - C+S If Indicated (07/04/17 12:52) Influenzae A/B Antigen (07/04/17 12:52) Blood Culture (07/04/17 12:52) Chest, Single Ap (07/04/17 12:52) Arterial Blood Gas (Abg) (07/04/17 12:52) Ecg Monitoring (07/04/17 12:52) Iv Access Insert/Monitor (07/04/17 12:52) Oximetry (07/04/17 12:52) Oxygen Administration (07/04/17 12:52) Sodium Chlor 0.9% 1000 Ml Inj (Ns 1000 M (07/04/17 12:52) Sodium Chlor 0.9% 1000 Ml Inj (Ns 1000 M (07/04/17 12:52) Sodium Chlor 0.9% 1000 Ml Inj (Ns 1000 M (07/04/17 12:52) Methylprednisolone So Succ Inj (Solumedr (07/04/17 13:00) Albuterol-Ipratropium Neb (Duoneb Neb) (07/04/17 13:00) Albuterol-Ipratropium Neb (Duoneb Neb) (07/04/17 12:57) Guaifen-Cod 200-20 Mg/10ml Liq (Robituss (07/04/17 13:30) Azithromycin Inj (Zithromax Inj) (07/04/17 13:45) Ceftriaxone Inj (Rocephin Inj) (07/04/17 13:45) Labs Laboratory Tests Test 07/04/17 12:55 07/04/17 13:00 07/04/17 13:12 White Blood Count 24.7 TH/MM3 Red Blood Count 4.58 MIL/MM3 Hemoglobin 14.2 GM/DL Hematocrit 41.8 % Mean Corpuscular Volume 91.3 FL Mean Corpuscular Hemoglobin 31.0 PG Mean Corpuscular Hemoglobin Concent 33.9 % Red Cell Distribution Width 12.6 % Platelet Count 426 TH/MM3 Mean Platelet Volume 6.5 FL Neutrophils (%) (Auto) 19.3 % Lymphocytes (%) (Auto) 68.8 % Monocytes (%) (Auto) 2.7 % Eosinophils (%) (Auto) 6.4 % Basophils (%) (Auto) 2.8 % Neutrophils # (Auto) 4.8 TH/MM3 Lymphocytes # (Auto) 16.9 TH/MM3 Monocytes # (Auto) 0.7 TH/MM3 Eosinophils # (Auto) 1.6 TH/MM3 Basophils # (Auto) 0.7 TH/MM3 CBC Comment AUTO DIFF Blood Urea Nitrogen 11 MG/DL Creatinine 0.88 MG/DL Random Glucose 156 MG/DL Total Protein 7.7 GM/DL Albumin 4.3 GM/DL Calcium Level 9.6 MG/DL Magnesium Level 2.2 MG/DL Alkaline Phosphatase 126 U/L Aspartate Amino Transf (AST/SGOT) 24 U/L Alanine Aminotransferase (ALT/SGPT) 25 U/L Total Bilirubin 0.3 MG/DL Sodium Level 135 MEQ/L Potassium Level 4.4 MEQ/L Chloride Level 98 MEQ/L Carbon Dioxide Level 29.8 MEQ/L Anion Gap 7 MEQ/L Estimat Glomerular Filtration Rate 65 ML/MIN Total Creatine Kinase 36 U/L Troponin I LESS THAN 0.02 NG/ML Lactic Acid Level 1.7 mmol/L Blood Gas Puncture Site LT RADIAL Blood Gas Patient Temperature 98.6 Blood Gas HCO3 29 mmol/L Blood Gas Base Excess 4.3 mmol/L Blood Gas Oxygen Saturation 90 % Arterial Blood pH 7.42 Arterial Blood Partial Pressure CO2 45 mmHG Arterial Blood Partial Pressure O2 68 mmHG Arterial Blood Oxygen Content 17.3 Vol % Arterial Blood Carboxyhemoglobin 2.4 % Arterial Blood Methemoglobin 1.0 % Blood Gas Hemoglobin 13.8 G/DL Oxygen Delivery Device ROOM AIR Blood Gas Inspired Oxygen 21 % [facility] Medical Decision Making Medical Screen Exam Complete: Yes Emergency Medical Condition: Yes Medical Record Reviewed: Yes Interpretation(s) EKG at 1251: Sinus tach at 110bpm, qt/qtc: 312/377 Vital Signs Date Time Temp Pulse Resp B/P (MAP) Pulse Ox O2 Delivery O2 Flow Rate FiO2 07/04/17 12:55 96 Nasal Cannula 2.00 07/04/17 12:36 98.8 129 28 180/94 (122) 91 Differential Diagnosis COPD exacerbation, pneumonia, PE, pneumothorax, ACS Narrative Course Patient is 62-year-old female with history of COPD, asthma, presents to emergency room with complaints of shortness of breath with wheezing and productive cough for the past 2 weeks. She is hypoxic with a pulse ox of 91% on room air. Patient is tachycardic with a heart rate in the 120s. Sepsis workup was initiated. Patient has been pancultured, IV fluids were ordered. During the course of the patients emergency department visit, the patients history, examination, and differential diagnosis were reviewed with the patient. The patient was placed on a hydraulic miner blasting with oximetry and frequent blood pressure monitoring. The patient had an IV access obtained and blood work sent for analysis. The patient was initially provided IV Solu-Medrol, duo nebs to treat patient's wheezing/COPD exacerbation. The patients laboratory studies were reviewed and remarkable for CBC & BMP Diagram 07/04/17 12:55 Patient does meet SIRS criteria with wbc 24.7, and her tachycardia, patient has been pancultured, a lactic acid was sent, patient was given the 30 cc/kg IV saline bolus. IV Rocephin as well as azithromycin was ordered as her infection is most likely pulmonary in nature Radiology studies were reviewed and remarkable for Last Impressions Chest X-Ray 07/04/17 1252 Signed Impressions: Service Date/Time: Tuesday, July 04, 2017 13:28 - CONCLUSION: 1. Remote right rib fractures. Stable elevated left hemidiaphragm. No consolidation or effusion. Rashid Real MD Patient with SIRS, COPD exacerbation, will require admission to the hospital. Case reviewed with Dr. Vinson who accepts pt to service Critical Care Narrative Aggregate critical care time was 30 minutes. Time to perform other separately billable procedures was not included in the critical care time. My time did not include minutes spent treating any other patients simultaneously or on activities that did not directly contribute to the patient's treatment. The services I provided to this patient were to treat and/or prevent clinically significant deterioration that could result in: , decompensation, deterioration I provided critical care services requiring my management, as noted below: Chart data review, documentation time, medication orders and management, vital sign assessments/reviewing monitor data, ordering and reviewing lab tests, ordering and interpreting/reviewing x-rays and diagnostic studies, care of the patient and discussion of the patient with the admitting physicians. Sepsis Criteria SIRS Criteria (2 or more): Heart rate over 90, WBC > 60024, < 4000 or > 10% bands Criteria Outcome: Meets sepsis criteria Diagnosis Primary Impression: COPD (chronic obstructive pulmonary disease) Qualified Codes: J44.9 - Chronic obstructive pulmonary disease, unspecified Additional Impressions: Hypoxia SIRS (systemic inflammatory response syndrome) Admitting Information Admitting Physician Requests: Admit Lara Singleton DO July 04, 2017 13:15
[2017-07-04 13:21] LABS: AUTOMATED NEUTROPHIL # 4.8 TH/MM3 (1.8-7.7); BASOPHIL # 0.7 TH/MM3 (0-0.2); BASOPHIL % 2.8 % (0.0-2.0); EOSINOPHIL # 1.6 TH/MM3 (0-0.4); EOSINOPHIL % 6.4 % (0.0-4.0); HEMATOCRIT 41.8 % (35.0-46.0); HEMOGLOBIN 14.2 GM/DL (11.6-15.3); LYMPH % 68.8 % (9.0-44.0); LYMPHOCYTE # 16.9 TH/MM3 (1.0-4.8); MEAN CELL VOLUME 91.3 FL (80.0-100.0); MEAN CORPUSCULAR HGB CONC 33.9 % (32.0-36.0); MEAN PLATELET VOLUME 6.5 FL (7.0-11.0); MONO % 2.7 % (0.0-8.0); MONOCYTE # 0.7 TH/MM3 (0-0.9); NEUT % 19.3 % (16.0-70.0); PLATELET COUNT 426 TH/MM3 (150-450); RED BLOOD COUNT 4.58 MIL/MM3 (4.00-5.30); RED CELL DISTRIBUTION WIDTH 12.6 % (11.6-17.2); WHITE BLOOD COUNT 24.7 TH/MM3 (4.0-11.0)
[2017-07-04] MEDS: guaiFENesin/CODEINE SYRUP 200 MG/20 MG/10 ML CUP PO PRN ×2 (13:33→19:59)
[2017-07-04 13:41] LABS: CHLORIDE 98 MEQ/L (98-107); SODIUM (NA) 135 MEQ/L (136-145)
--- NOTE | 2017-07-04 13:44 | RADRPT ---
EXAM DATE/TIME: 07/04/2017 13:28 [facility] COMPARISON: CHEST SINGLE AP, May 24, 2017, 16:33. INDICATIONS : Short of breath for several weeks. MEDICAL HISTORY : Chronic obstructive pulmonary disease. Asthma. SURGICAL HISTORY : Hysterectomy. ENCOUNTER: Initial ACUITY: 2 weeks PAIN SCORE: 0/10 LOCATION: Bilateral chest FINDINGS: A single view of the chest demonstrates the lungs to be symmetrically aerated without evidence of mas s, infiltrate or effusion. The cardiomediastinal contours are unremarkable. Remote right rib fractur es. Stable elevated left hemidiaphragm. CONCLUSION: 1. Remote right rib fractures. Stable elevated left hemidiaphragm. No consolidation or effusion. Rashid Real MD on July 04, 2017 at 13:40 Board Certified Radiologist. This report was verified electronically.
[2017-07-04 13:45] LABS: CALCIUM 9.6 MG/DL (8.5-10.1)
[2017-07-04] MEDS ORDERED: cefTRIAXone INJ 1,000 MG in SODIUM CHLORIDE 0.9% INJ 100 ML IV ONE (13:45)
[2017-07-04] MEDS ORDERED: AZITHROMYCIN INJ 500 MG in SODIUM CHLOR 0.9% 250 ML INJ 250 ML IV ONE (13:45)
[2017-07-04 13:46] LABS: ALBUMIN 4.3 GM/DL (3.4-5.0); BICARBONATE 29.8 MEQ/L (21.0-32.0); BLOOD UREA NITROGEN 11 MG/DL (7-18); GLUCOSE,RANDOM 156 MG/DL (74-106); MAGNESIUM 2.2 MG/DL (1.5-2.5)
[2017-07-04 13:49] LABS: ALT (GPT) 25 U/L (10-53); AST (GOT) 24 U/L (15-37); CREATININE 0.88 MG/DL (0.50-1.00); GLOMERULAR FILTRATION RATE 65 ML/MIN (>89)
[2017-07-04 13:51] LABS: TOTAL BILIRUBIN ADULT 0.3 MG/DL (0.2-1.0); TOTAL PROTEIN 7.7 GM/DL (6.4-8.2)
[2017-07-04 13:52] LABS: ALKALINE PHOSPHATASE 126 U/L (45-117)
[2017-07-04 13:54] LABS: TROPONIN I LESS THAN 0.02 NG/ML (0.02-0.05)
[2017-07-04 14:15] LABS: LYMPHOCYTES 71 % (9-44); MONOCYTES 3 % (0-8); NEUTROPHIL # MANUAL DIFF 5.4 TH/MM3 (1.8-7.7); POLYS (SEG NEUTROPHILS) 22 % (16-70)
[2017-07-04] MEDS ORDERED: SODIUM CHLOR 0.9% 1000 ML INJ 1,000 ML IV SCH (15:20)
[2017-07-04 15:21] LABS: BILIRUBIN, URINE NEG (NEG); BLOOD, URINE NEG (NEG); GLUCOSE,URINE NEG (NEG); KETONE, URINE NEG (NEG); NITRITE,URINE NEG (NEG); PH, URINE 6.5 (5.0-8.5); URINE COLOR YELLOW (YELLW/STRAW); URINE LEUKOCYTE ESTERASE NEG (NEG)
[2017-07-04 15:28] LABS: SQUAMOUS EPITHELIAL CELL URINE 0-5 /hpf (0-5)
[2017-07-04] MEDS ORDERED: ACETAMINOPHEN 325 MG TAB PO PRN ×2 (15:30)
[2017-07-04] MEDS ORDERED: ONDANSETRON HCL 4 MG/2 ML VIAL IVP PRN (15:30)
[2017-07-04] MEDS ORDERED: SODIUM CHLORIDE 0.9% FLUSH 10 ML FLUSH IV FLUSH PRN (15:30)
[2017-07-04] MEDS ORDERED: NALOXONE HCL 0.4 MG/ML AMP IV PUSH PRN (15:30)
[2017-07-04] MEDS ORDERED: LISINOPRIL 10 MG TAB PO SCH (16:00)
--- NOTE | 2017-07-04 17:11 | EKG ---
Date Performed: 07/04/2017 Time Performed: 12:51:29 PTAGE: 62 years EKG: SINUS TACHYCARDIA WITH SHORT NC INTERVAL ABNORMAL RHYTHM ECG INTERPRETATION BASED ON A DEFA ULT AGE OF 40 YEARS PREVIOUS TRACING : 04/10/2017 23.38 DOCTOR: Arnoldo Harris Interpretating Date/Time 07/04/2017 17:09:39
[2017-07-04] MEDS ORDERED: cloNIDine HCL 0.1 MG TAB PO PRN (18:15)
--- NOTE | 2017-07-04 18:22 | HHI.HP ---
[facility] No Primary Care Physician Admission Diagnosis COPD Exacerbation, SIRS Diagnoses: Chief Complaint: Shortness of breath Travel History International Travel<30 Days: No Contact w/Intl Traveler <30 Da: No Traveled to Known Affected Are: No History of Present Illness The patient is a 62-year-old female the past medical history of COPD and asthma who is presenting to the hospital with shortness of breath. She says her roommate was using cleaning supplies and that seemed to trigger a COPD exacerbation. She says she has not on home oxygen. She does have inhalers which have not been improving her shortness of breath. She says she has been coughing mostly a dry cough, but sometimes has mucus production. She says she was diagnosed with COPD about a year ago. She says she no longer smokes cigarettes, however, she states that her roommates are current smokers. She states she does not have much of an appetite. She has been endorsing rib pain on the right side. She has not had any fevers. She currently feels better. She says she was hospitalized a few months ago for COPD. Review of Systems Except as stated in HPI: all other systems reviewed are Neg Past Family Social History Past Medical History Asthma COPD Depression Osteoporosis with history of multiple broken bones Hypertension Past Surgical History Bilateral cataract surgery Bilateral shoulder surgery Right knee surgery Tubal ligation Allergies: Coded Allergies: banana (Unverified Allergy, Severe, Swelling, 07/04/17) Patient states severe swelling and difficulty breathing phenobarbital (Unverified Allergy, Severe, SENSITIVITY, 07/04/17) bacitracin (Verified Allergy, Intermediate, severe rash, 07/04/17) neomycin (Verified Allergy, Intermediate, severe rash, 07/04/17) polymyxin B (Verified Allergy, Intermediate, severe rash, 07/04/17) Family History HTN DM Social History The patient quit smoking in October of last year. She has social alcohol use. Physical Exam Vital Signs Vital Signs Date Time Temp Pulse Resp B/P (MAP) Pulse Ox O2 Delivery O2 Flow Rate FiO2 07/04/17 17:01 84 20 166/91 (116) 96 Nasal Cannula 2.00 5/8/18 14:25 98.8 95 18 183/90 (121) 100 Nasal Cannula 2.00 07/04/17 13:00 90 Nasal Cannula 2.00 07/04/17 13:00 22 90 Nasal Cannula 2.00 07/04/17 12:55 96 Nasal Cannula 2.00 07/04/17 12:36 98.8 129 28 180/94 (122) 91 Physical Exam GENERAL: Resting comfortably. SKIN: Focused skin assessment warm/dry. HEAD: Atraumatic. Normocephalic. EYES: Pupils equal and round. No scleral icterus. No injection or drainage. ENT: No nasal bleeding or discharge. Mucous membranes pink and moist. NECK: Trachea midline. No JVD. CARDIOVASCULAR: Regular rate and rhythm. No murmur appreciated. RESPIRATORY: Patient with decreased air movement. GASTROINTESTINAL: Abdomen soft, non-tender, nondistended. Hepatic and splenic margins not palpable. MUSCULOSKELETAL: No obvious deformities. No clubbing. No cyanosis. No edema. NEUROLOGICAL: Awake and alert. No obvious cranial nerve deficits. Motor grossly within normal limits. Normal speech. PSYCHIATRIC: Anxious mood and affect; insight and judgment normal. Laboratory Laboratory Tests Test 07/04/17 12:55 07/04/17 13:00 07/04/17 13:12 07/04/17 15:15 White Blood Count 24.7 Red Blood Count 4.58 Hemoglobin 14.2 Hematocrit 41.8 Mean Corpuscular Volume 91.3 Mean Corpuscular Hemoglobin 31.0 Mean Corpuscular Hemoglobin Concent 33.9 Red Cell Distribution Width 12.6 Platelet Count 426 Mean Platelet Volume 6.5 Neutrophils (%) (Auto) 19.3 Lymphocytes (%) (Auto) 68.8 Monocytes (%) (Auto) 2.7 Eosinophils (%) (Auto) 6.4 Basophils (%) (Auto) 2.8 Neutrophils # (Auto) 4.8 Lymphocytes # (Auto) 16.9 Monocytes # (Auto) 0.7 Eosinophils # (Auto) 1.6 Basophils # (Auto) 0.7 CBC Comment AUTO DIFF Differential Total Cells Counted 100 Neutrophils % (Manual) 22 Lymphocytes % 71 Monocytes % 3 Eosinophils % 4 Neutrophils # (Manual) 5.4 Differential Comment FINAL DIFF MANUAL Platelet Estimate NORMAL Platelet Morphology Comment NORMAL Prothrombin Time 10.0 Prothromb Time International Ratio 1.0 Activated Partial Thromboplast Time 23.6 Blood Urea Nitrogen 11 Creatinine 0.88 Random Glucose 156 Total Protein 7.7 Albumin 4.3 Calcium Level 9.6 Magnesium Level 2.2 Alkaline Phosphatase 126 Aspartate Amino Transf (AST/SGOT) 24 Alanine Aminotransferase (ALT/SGPT) 25 Total Bilirubin 0.3 Sodium Level 135 Potassium Level 4.4 Chloride Level 98 Carbon Dioxide Level 29.8 Anion Gap 7 Estimat Glomerular Filtration Rate 65 Total Creatine Kinase 36 Troponin I LESS THAN 0.02 Lactic Acid Level 1.7 Blood Gas Puncture Site LT RADIAL Blood Gas Patient Temperature 98.6 Blood Gas HCO3 29 Blood Gas Base Excess 4.3 Blood Gas Oxygen Saturation 90 Arterial Blood pH 7.42 Arterial Blood Partial Pressure CO2 45 Arterial Blood Partial Pressure O2 68 Arterial Blood Oxygen Content 17.3 Arterial Blood Carboxyhemoglobin 2.4 Arterial Blood Methemoglobin 1.0 Blood Gas Hemoglobin 13.8 Oxygen Delivery Device ROOM AIR Blood Gas Inspired Oxygen 21 Urine Color YELLOW Urine Turbidity CLEAR Urine pH 6.5 Urine Specific [place] 1.010 Urine Protein NEG Urine Glucose (UA) NEG Urine Ketones NEG Urine Occult Blood NEG Urine Nitrite NEG Urine Bilirubin NEG Urine Urobilinogen 0.2 Urine Leukocyte Esterase NEG Urine Squamous Epithelial Cells 0-5 Microscopic Urinalysis Comment CATH-CULT NOT IND Date/Time Source Procedure Growth Status 07/04/17 13:00 Blood Peripheral Aerobic Blood Culture Pending Received 07/04/17 13:00 Blood Peripheral Anaerobic Blood Culture Pending Received 07/04/17 15:01 Nasal Aspirate Influenza Types A,B Antigen (RACHEL) - Final NEGATIVE FOR FLU A AND B ANTIGEN.... Complete Result Diagram: 07/04/17 1255 07/04/17 1255 Imaging Last Impressions Chest X-Ray 07/04/17 1252 Signed Impressions: Service Date/Time: Tuesday, July 04, 2017 13:28 - CONCLUSION: 1. Remote right rib fractures. Stable elevated left hemidiaphragm. No consolidation or effusion. Rashid Real MD Caprini VTE Risk Assessment Caprini VTE Risk Assessment: Mod/High Risk (score >= 2) Caprini Risk Assessment Model Point Value = 1 Point Value = 2 Point Value = 3 Point Value = 5 Age 41-60 Minor surgery BMI > 25 kg/m2 Swollen legs Varicose veins or History of unexplained or recurrent spontaneous Oral contraceptives or hormone replacement Sepsis (< 1 month) Serious lung disease, including pneumonia (< 1 month) Abnormal pulmonary function Acute myocardial infarction Congestive heart failure (< 1 month) History of inflammatory bowel disease Medical patient at bed rest Age 61-74 Arthroscopic surgery Major open surgery (> 45 min) Laparoscopic surgery (> 45 min) Malignancy Confined to bed (> 72 hours) Immobilizing plaster cast Central venous access Age >= 75 History of VTE Family history of VTE Factor V Leiden Prothrombin [id number] Lupus anticoagulant Anticardiolipin antibodies Elevated serum homocysteine Heparin-induced thrombocytopenia Other congenital or acquired thrombophilia Stroke (< 1 month) Elective arthroplasty Hip, pelvis, or leg fracture Acute spinal cord injury (< 1 month) Prophylaxis Regimen Total Risk Factor Score Risk Level Prophylaxis Regimen 0-1 Low Early ambulation 2 Moderate Order ONE of the following: *Sequential Compression Device (SCD) *Heparin 5000 units SQ BID 3-4 Higher Order ONE of the following medications: *Heparin 5000 units SQ TID *Enoxaparin/Lovenox 40 mg SQ daily (WT < 150 kg, CrCl > 30 mL/min) *Enoxaparin/Lovenox 30 mg SQ daily (WT < 150 kg, CrCl > 10-29 mL/min) *Enoxaparin/Lovenox 30 mg SQ BID (WT < 150 kg, CrCl > 30 mL/min) AND/OR *Sequential Compression Device (SCD) 5 or more Highest Order ONE of the following medications: *Heparin 5000 units SQ TID (Preferred with Epidurals) *Enoxaparin/Lovenox 40 mg SQ daily (WT < 150 kg, CrCl > 30 mL/min) *Enoxaparin/Lovenox 30 mg SQ daily (WT < 150 kg, CrCl > 10-29 mL/min) *Enoxaparin/Lovenox 30 mg SQ BID (WT < 150 kg, CrCl > 30 mL/min) AND *Sequential Compression Device (SCD) Assessment and Plan Assessment and Plan Acute COPD exacerbation The pt is not on home oxygen. Influenza negative. CXR without acute process. - Continue supplemental oxygen. - Continue standing and as needed bronchodilators. - IV steroids. - IV azithromycin. - encourage ambulation, IS. Leukocytosis Secondary to above. - Monitor CBC. - treatment as above. Hypertension Poorly controlled. - Continue amlodipine, lisinopril. - clonidine as needed. Hyperglycemia Likely a stress reaction. - check an A1c. DVT prophylaxis: Lovenox. Discussed Condition With Pt, Dr. Singleton Physician Certification 2 Midnight Certification Type: Admission for Inpatient Services Order for Inpatient Services The services are ordered in accordance with Medicare regulations or non- Medicare payer requirements, as applicable. In the case of services not specified as inpatient-only, they are appropriately provided as inpatient services in accordance with the 2-midnight benchmark. Estimated LOS (days): 2 days is the estimated time the patient will need to remain in the hospital, assuming treatment plan goals are met and no additional complications. Post-Hospital Plan: Home Zia Munguia DO July 04, 2017 18:22
[2017-07-04] MEDS ORDERED: LISINOPRIL 10 MG TAB PO ONE (19:00)
[2017-07-04] MEDS: SODIUM CHLORIDE 0.9% FLUSH 10 ML FLUSH IV FLUSH SCH (20:00)
[2017-07-04] MEDS: RESP: ALBUTEROL 2.5 MG/IPRATROPIUM 0.5 MG NEB (SCH) NEB (20:00)
[2017-07-04] MEDS: DOCUSATE SODIUM 50 MG/SENNA 8.6 MG TAB PO SCH (20:00)
[2017-07-04] MEDS: ENOXAPARIN SODIUM 30 MG/0.3 ML SYRINGE SQ SCH (20:01)
[2017-07-04] MEDS: methylPREDNISolone SOD SUCC 40 MG/1 ML VIAL IV PUSH SCH (20:01)
[2017-07-04] MEDS: RESP: ALBUTEROL 2.5 MG/IPRATROPIUM 0.5 MG NEB (PRN) NEB (23:46)
[2017-07-05] VITALS (7 sets, daily range): BP systolic 141–171; BP diastolic 73–89; PULSE 88–95; RESP 15–20; TEMP 96.2–99; O2SAT 93–100
[2017-07-05 06:54] LABS: AUTOMATED NEUTROPHIL # 6.1 TH/MM3 (1.8-7.7); BASOPHIL # 0.2 TH/MM3 (0-0.2); BASOPHIL % 1.1 % (0.0-2.0); LYMPHOCYTE # 12.3 TH/MM3 (1.0-4.8); MEAN CELL VOLUME 92.9 FL (80.0-100.0); MEAN CORPUSCULAR HGB CONC 32.3 % (32.0-36.0); MEAN PLATELET VOLUME 6.4 FL (7.0-11.0); MONO % 3.2 % (0.0-8.0); MONOCYTE # 0.6 TH/MM3 (0-0.9); NEUT % 31.7 % (16.0-70.0); PLATELET COUNT 372 TH/MM3 (150-450); RED BLOOD COUNT 3.66 MIL/MM3 (4.00-5.30); RED CELL DISTRIBUTION WIDTH 12.8 % (11.6-17.2); WHITE BLOOD COUNT 19.2 TH/MM3 (4.0-11.0)
[2017-07-05] MEDS: RESP: ALBUTEROL 2.5 MG/IPRATROPIUM 0.5 MG NEB (SCH) NEB ×3 (07:15→20:39)
[2017-07-05 07:20] LABS: ALBUMIN 3.3 GM/DL (3.4-5.0); ALKALINE PHOSPHATASE 88 U/L (45-117); ALT (GPT) 16 U/L (10-53); AST (GOT) 11 U/L (15-37); BICARBONATE 25.8 MEQ/L (21.0-32.0); BLOOD UREA NITROGEN 8 MG/DL (7-18); CALCIUM 7.7 MG/DL (8.5-10.1); CHLORIDE 108 MEQ/L (98-107); CREATININE 0.45 MG/DL (0.50-1.00); GLOMERULAR FILTRATION RATE 141 ML/MIN (>89); GLUCOSE,RANDOM 103 MG/DL (74-106); SODIUM (NA) 140 MEQ/L (136-145); TOTAL BILIRUBIN ADULT 0.2 MG/DL (0.2-1.0); TOTAL PROTEIN 5.7 GM/DL (6.4-8.2)
[2017-07-05 08:01] LABS: LYMPHOCYTES 65 % (9-44); MONOCYTES 2 % (0-8); NEUTROPHIL # MANUAL DIFF 6.3 TH/MM3 (1.8-7.7); POLYS (SEG NEUTROPHILS) 33 % (16-70)
[2017-07-05] MEDS: DOCUSATE SODIUM 50 MG/SENNA 8.6 MG TAB PO SCH ×2 (08:58→19:53)
[2017-07-05] MEDS: LISINOPRIL 20 MG TAB PO SCH (08:58)
[2017-07-05] MEDS: SODIUM CHLORIDE 0.9% FLUSH 10 ML FLUSH IV FLUSH SCH ×2 (08:58→19:53)
[2017-07-05] MEDS: methylPREDNISolone SOD SUCC 40 MG/1 ML VIAL IV PUSH SCH (08:58)
[2017-07-05] MEDS ORDERED: POTASSIUM CHLORIDE 20 MEQ CONTROLLED RELEASE TAB PO SCH (11:15)
--- NOTE | 2017-07-05 11:36 | HHI.PR ---
Subjective Remarks The patient was feeling a lot better. She still has a cough and has some muscle pain associated with that. She has been ambulatory. She requests a regular diet. She has not been using oxygen recently. Discussed with nursing. Objective Vitals Vital Signs Date Time Temp Pulse Resp B/P (MAP) Pulse Ox O2 Delivery O2 Flow Rate FiO2 07/05/17 08:00 98.7 91 20 152/76 (101) 95 07/05/17 07:15 93 21 07/05/17 00:00 99.0 92 15 141/81 (101) 100 07/04/17 20:02 99 21 07/04/17 20:00 96.0 92 16 157/89 (111) 96 07/04/17 18:20 07/04/17 18:19 16 96 Nasal Cannula 2.00 07/04/17 17:01 84 20 166/91 (116) 96 Nasal Cannula 2.00 07/04/17 14:25 98.8 95 18 183/90 (121) 100 Nasal Cannula 2.00 07/04/17 13:00 90 Nasal Cannula 2.00 07/04/17 13:00 22 90 Nasal Cannula 2.00 07/04/17 12:55 96 Nasal Cannula 2.00 07/04/17 12:36 98.8 129 28 180/94 (122) 91 I/O 07/04/17 07/04/17 07/04/17 07/05/17 07/05/17 07/05/17 06:59 14:59 22:59 06:59 14:59 22:59 Intake Total 2000 ml 750 ml 1360 ml 120 ml Balance 2000 ml 750 ml 1360 ml 120 ml Intake Oral 360 ml 120 ml IV Total 2000 ml 750 ml 1000 ml # Voids 3 Result Diagram: 07/05/17 0615 07/05/17 0615 Imaging Last Impressions Chest X-Ray 07/04/17 1252 Signed Impressions: Service Date/Time: Tuesday, July 04, 2017 13:28 - CONCLUSION: 1. Remote right rib fractures. Stable elevated left hemidiaphragm. No consolidation or effusion. Rashid Real MD Objective Remarks GENERAL: Resting comfortably. SKIN: Focused skin assessment warm/dry. HEAD: Atraumatic. Normocephalic. EYES: Pupils equal and round. No scleral icterus. No injection or drainage. ENT: No nasal bleeding or discharge. Mucous membranes pink and moist. NECK: Trachea midline. No JVD. CARDIOVASCULAR: Regular rate and rhythm. No murmur appreciated. RESPIRATORY: Patient with decreased air movement. GASTROINTESTINAL: Abdomen soft, non-tender, nondistended. Hepatic and splenic margins not palpable. MUSCULOSKELETAL: No obvious deformities. No clubbing. No cyanosis. No edema. NEUROLOGICAL: Awake and alert. No obvious cranial nerve deficits. Motor grossly within normal limits. Normal speech. PSYCHIATRIC: Mood and affect appropriate. A/P Assessment and Plan Acute COPD exacerbation The pt is not on home oxygen. Influenza negative. CXR without acute process. - Continue supplemental oxygen as needed. - Continue standing and as needed bronchodilators. - IV steroids changed to PO prednisone. - IV azithromycin. - encourage ambulation, IS. Leukocytosis Secondary to above. Improving. - treatment as above. Hypertension Improved. - Continue amlodipine, lisinopril. - clonidine as needed. Hyperglycemia Likely a stress reaction. Improved. - resolved. Anemia May be dilutional. - follow CBC. DVT prophylaxis: Lovenox. Zia Munguia DO July 05, 2017 11:36
[2017-07-05] MEDS: guaiFENesin/CODEINE SYRUP 200 MG/20 MG/10 ML CUP PO PRN ×3 (12:03→20:39)
[2017-07-05] MEDS: AZITHROMYCIN INJ 500 MG in SODIUM CHLOR 0.9% 250 ML INJ 250 ML IV SCH (13:50)
[2017-07-05] MEDS: BENZONATATE 100 MG CAP PO SCH (17:41)
[2017-07-05] MEDS: cefTRIAXone INJ 1,000 MG in SODIUM CHLORIDE 0.9% INJ 100 ML IV SCH (17:41)
[2017-07-05] MEDS: predniSONE 20 MG TAB PO SCH (19:53)
[2017-07-05] MEDS: ENOXAPARIN SODIUM 30 MG/0.3 ML SYRINGE SQ SCH (19:54)
[2017-07-06] VITALS (7 sets, daily range): BP systolic 145–168; BP diastolic 82–103; PULSE 86–170; RESP 17–20; TEMP 96.4–97.6; O2SAT 92–97
[2017-07-06] MEDS: guaiFENesin/CODEINE SYRUP 200 MG/20 MG/10 ML CUP PO PRN ×4 (01:56→20:02)
[2017-07-06] MEDS: RESP: ALBUTEROL 2.5 MG/IPRATROPIUM 0.5 MG NEB (PRN) NEB (02:13)
[2017-07-06] MEDS: RESP: ALBUTEROL 2.5 MG/IPRATROPIUM 0.5 MG NEB (SCH) NEB ×3 (07:50→19:25)
[2017-07-06] MEDS: DOCUSATE SODIUM 50 MG/SENNA 8.6 MG TAB PO SCH ×2 (08:32→20:01)
[2017-07-06] MEDS: predniSONE 20 MG TAB PO SCH ×2 (08:32→20:01)
[2017-07-06] MEDS: BENZONATATE 100 MG CAP PO SCH ×3 (08:32→17:27)
[2017-07-06] MEDS: LISINOPRIL 20 MG TAB PO SCH (08:32)
[2017-07-06] MEDS: SODIUM CHLORIDE 0.9% FLUSH 10 ML FLUSH IV FLUSH SCH ×2 (08:35→19:42)
[2017-07-06] MEDS: AZITHROMYCIN INJ 500 MG in SODIUM CHLOR 0.9% 250 ML INJ 250 ML IV SCH (12:20)
--- NOTE | 2017-07-06 12:57 | HHI.PR ---
Subjective Remarks The patient was eating lunch. She said she did have coughing fits recently. She also is complaining of some right upper thigh pain. She says the cough medication seem to be helping. Discussed with nursing. Objective Vitals Vital Signs Date Time Temp Pulse Resp B/P (MAP) Pulse Ox O2 Delivery O2 Flow Rate FiO2 07/06/17 12:44 97.6 170 17 168/103 (124) 95 07/06/17 08:40 97.1 86 18 168/84 (112) 95 07/06/17 07:52 92 21 07/06/17 00:00 97.2 98 20 145/82 (103) 94 07/05/17 20:39 96 21 07/05/17 20:00 96.2 88 20 165/89 (114) 96 07/05/17 16:00 97.6 95 19 150/73 (98) 96 I/O 07/05/17 07/05/17 07/05/17 07/06/17 07/06/17 07/06/17 07:00 15:00 23:00 07:00 15:00 23:00 Intake Total 1360 ml 120 ml 100 ml 458 ml Output Total 520 ml Balance 1360 ml 120 ml -420 ml 458 ml Intake Oral 360 ml 120 ml 100 ml 458 ml IV Total 1000 ml Output Urine Total 520 ml # Voids 3 3 # Bowel Movements 1 1 Result Diagram: 07/05/17 0615 07/05/17 0615 Imaging Last Impressions Chest X-Ray 07/04/17 1252 Signed Impressions: Service Date/Time: Tuesday, July 04, 2017 13:28 - CONCLUSION: 1. Remote right rib fractures. Stable elevated left hemidiaphragm. No consolidation or effusion. Rashid Real MD Objective Remarks GENERAL: No distress. SKIN: Focused skin assessment warm/dry. HEAD: Atraumatic. Normocephalic. EYES: Pupils equal and round. No scleral icterus. No injection or drainage. ENT: No nasal bleeding or discharge. Mucous membranes pink and moist. NECK: Trachea midline. No JVD. CARDIOVASCULAR: Regular rate and rhythm. No murmur appreciated. RESPIRATORY: Patient with decreased air movement. GASTROINTESTINAL: Abdomen soft, non-tender, nondistended. Hepatic and splenic margins not palpable. MUSCULOSKELETAL: No obvious deformities. No clubbing. No cyanosis. No edema. NEUROLOGICAL: Awake and alert. No obvious cranial nerve deficits. Motor grossly within normal limits. Normal speech. PSYCHIATRIC: Anxious. A/P Assessment and Plan Acute COPD exacerbation The pt is not on home oxygen. Influenza negative. CXR without acute process. She passed a home oxygen walk test. Continues to have coughing fits. - Continue supplemental oxygen as needed. - Continue standing and as needed bronchodilators. - Resume home inhaler. - IV steroids changed to PO prednisone. - IV azithromycin and ceftriaxone. - encourage ambulation, IS. - d/c lisinopril as may be contributing to cough. Leukocytosis Secondary to above. Improving. - treatment as above. Hypertension BP has been elevated. - d/c lisinopril as may be contributing to coughing fits. - add amlodipine 10 mg daily. - clonidine as needed. Hyperglycemia Likely a stress reaction. Improved. - resolved. Anemia May be dilutional. - follow CBC. DVT prophylaxis: Lovenox. Zia Munguia DO July 06, 2017 12:56
[2017-07-06] MEDS: BUDESONIDE-FORMOTEROL 80/4.5 MCG INHALER INH SCH ×2 (14:27→21:00)
[2017-07-06] MEDS: cefTRIAXone INJ 1,000 MG in SODIUM CHLORIDE 0.9% INJ 100 ML IV SCH (17:28)
[2017-07-06] MEDS: LORazepam 0.5 MG TAB PO PRN (17:35)
[2017-07-06] MEDS: ENOXAPARIN SODIUM 30 MG/0.3 ML SYRINGE SQ SCH (20:01)
[2017-07-07] VITALS: BP 185/97; PULSE 82; RESP 20; TEMP 96.9; O2SAT 95
[2017-07-07] MEDS: guaiFENesin/CODEINE SYRUP 200 MG/20 MG/10 ML CUP PO PRN ×3 (02:09→13:46)
[2017-07-07] MEDS: RESP: ALBUTEROL 2.5 MG/IPRATROPIUM 0.5 MG NEB (PRN) NEB (02:11)
[2017-07-07] MEDS: LORazepam 0.5 MG TAB PO PRN (02:33)
[2017-07-07] MEDS: BUDESONIDE-FORMOTEROL 80/4.5 MCG INHALER INH SCH ×2 (02:34→08:03)
[2017-07-07 06:50] LABS: HEMOGLOBIN 11.8 GM/DL (11.6-15.3); MEAN CELL VOLUME 93.1 FL (80.0-100.0); MEAN CORPUSCULAR HEMOGLOBIN 29.6 PG (27.0-34.0); MEAN CORPUSCULAR HGB CONC 31.8 % (32.0-36.0); MEAN PLATELET VOLUME 6.8 FL (7.0-11.0); PLATELET COUNT 375 TH/MM3 (150-450); RED BLOOD COUNT 3.98 MIL/MM3 (4.00-5.30); RED CELL DISTRIBUTION WIDTH 12.9 % (11.6-17.2); WHITE BLOOD COUNT 21.5 TH/MM3 (4.0-11.0)
[2017-07-07 07:26] LABS: BICARBONATE 29.2 MEQ/L (21.0-32.0); CALCIUM 8.7 MG/DL (8.5-10.1); CREATININE 0.42 MG/DL (0.50-1.00); MAGNESIUM 2.2 MG/DL (1.5-2.5)
[2017-07-07] MEDS: RESP: ALBUTEROL 2.5 MG/IPRATROPIUM 0.5 MG NEB (SCH) NEB ×2 (07:54→14:00)
[2017-07-07 07:55] VITALS: O2SAT 95
[2017-07-07 08:00] VITALS: BP 160/90; PULSE 82; RESP 18; TEMP 97.5; O2SAT 92
[2017-07-07] MEDS: BENZONATATE 100 MG CAP PO SCH ×2 (08:02→13:46)
[2017-07-07] MEDS: DOCUSATE SODIUM 50 MG/SENNA 8.6 MG TAB PO SCH (08:02)
[2017-07-07] MEDS: predniSONE 20 MG TAB PO SCH (08:02)
[2017-07-07] MEDS: SODIUM CHLORIDE 0.9% FLUSH 10 ML FLUSH IV FLUSH SCH (08:03)
[2017-07-07 12:00] VITALS: BP 163/87; PULSE 89; RESP 18; TEMP 96.3; O2SAT 97
[2017-07-07] MEDS ORDERED: IPRA0.02 NEB (12:37)
[2017-07-07] MEDS ORDERED: GUAISYP4 PO (12:37)
[2017-07-07] MEDS ORDERED: AMLO10 PO (12:37)
[2017-07-07] MEDS ORDERED: ALBU0.08 NEB (12:37)
[2017-07-07] MEDS ORDERED: SYMB80AE INH (12:37)
[2017-07-07] MEDS ORDERED: LORA-392 PO (12:37)
[2017-07-07] MEDS ORDERED: VENTAER INH (12:37)
[2017-07-07] MEDS ORDERED: AZIT500T2 PO (12:37)
[2017-07-07] MEDS ORDERED: PRED10PA2 PO (12:37)
[2017-07-07] MEDS ORDERED: BENZ100 PO (12:37)
--- NOTE | 2017-07-07 12:38 | HHI.DCPOC ---
Discharge Care Plan Diagnosis: (1) Asthma (2) COPD exacerbation Goals to Promote Your Health * To prevent worsening of your condition and complications * To maintain your health at the optimal level Directions to Meet Your Goals Take your medications as prescribed Follow your dietary instruction Follow activity as directed Keep your appointments as scheduled Take your immunizations and boosters as scheduled If your symptoms worsen call your PCP, if no PCP go to Urgent Care Center or Emergency Room Smoking is Dangerous to Your Health. Avoid second hand smoke Call the 24-hour hour crisis hotline for domestic abuse at Zia Munguia DO July 07, 2017 12:38
--- NOTE | 2017-07-07 12:41 | HHI.DS ---
Discharge Summary Admission Date July 04, 2017 at 14:07 Discharge Date: July 07, 2017 Admitting Diagnosis COPD Exacerbation, SIRS (1) COPD exacerbation ICD Code: J44.1 - Chronic obstructive pulmonary disease with (acute) exacerbation Diagnosis: Principal Status: Acute (2) Asthma ICD Code: J45.909 - Asthma Status: Chronic Procedures None Brief History - From Admission The patient is a 62-year-old female the past medical history of COPD and asthma who is presenting to the hospital with shortness of breath. She says her roommate was using cleaning supplies and that seemed to trigger a COPD exacerbation. She says she has not on home oxygen. She does have inhalers which have not been improving her shortness of breath. She says she has been coughing mostly a dry cough, but sometimes has mucus production. She says she was diagnosed with COPD about a year ago. She says she no longer smokes cigarettes, however, she states that her roommates are current smokers. She states she does not have much of an appetite. She has been endorsing rib pain on the right side. She has not had any fevers. She currently feels better. She says she was hospitalized a few months ago for COPD. CBC/BMP: 07/07/17 0545 07/07/17 0545 Significant Findings Laboratory Tests Test 07/04/17 12:55 07/04/17 13:00 07/04/17 13:12 07/04/17 15:15 White Blood Count 24.7 TH/MM3 (4.0-11.0) Mean Platelet Volume 6.5 FL (7.0-11.0) Lymphocytes (%) (Auto) 68.8 % (9.0-44.0) Eosinophils (%) (Auto) 6.4 % (0.0-4.0) Basophils (%) (Auto) 2.8 % (0.0-2.0) Lymphocytes # (Auto) 16.9 TH/MM3 (1.0-4.8) Eosinophils # (Auto) 1.6 TH/MM3 (0-0.4) Basophils # (Auto) 0.7 TH/MM3 (0-0.2) Lymphocytes % 71 % (9-44) Activated Partial Thromboplast Time 23.6 SEC (24.3-30.1) Random Glucose 156 MG/DL (74-106) Alkaline Phosphatase 126 U/L (45-117) Sodium Level 135 MEQ/L (136-145) Estimat Glomerular Filtration Rate 65 ML/MIN (>89) Troponin I LESS THAN 0.02 NG/ML Blood Gas HCO3 29 mmol/L (22-26) Blood Gas Base Excess 4.3 mmol/L (-2-2) Arterial Blood Partial Pressure CO2 45 mmHG (38-42) Test 07/05/17 06:15 07/07/17 05:45 White Blood Count 19.2 TH/MM3 (4.0-11.0) 21.5 TH/MM3 (4.0-11.0) Red Blood Count 3.66 MIL/MM3 (4.00-5.30) 3.98 MIL/MM3 (4.00-5.30) Hemoglobin 11.0 GM/DL (11.6-15.3) Hematocrit 34.0 % (35.0-46.0) Mean Platelet Volume 6.4 FL (7.0-11.0) 6.8 FL (7.0-11.0) Lymphocytes (%) (Auto) 64.0 % (9.0-44.0) Lymphocytes # (Auto) 12.3 TH/MM3 (1.0-4.8) Lymphocytes % 65 % (9-44) Creatinine 0.45 MG/DL (0.50-1.00) 0.42 MG/DL (0.50-1.00) Total Protein 5.7 GM/DL (6.4-8.2) Albumin 3.3 GM/DL (3.4-5.0) Calcium Level 7.7 MG/DL (8.5-10.1) Aspartate Amino Transf (AST/SGOT) 11 U/L (15-37) Potassium Level 3.4 MEQ/L (3.5-5.1) Chloride Level 108 MEQ/L (98-107) Mean Corpuscular Hemoglobin Concent 31.8 % (32.0-36.0) Blood Urea Nitrogen 6 MG/DL (7-18) Random Glucose 110 MG/DL (74-106) PE at Discharge GENERAL: No distress. SKIN: Focused skin assessment warm/dry. HEAD: Atraumatic. Normocephalic. EYES: Pupils equal and round. No scleral icterus. No injection or drainage. ENT: No nasal bleeding or discharge. Mucous membranes pink and moist. NECK: Trachea midline. No JVD. CARDIOVASCULAR: Regular rate and rhythm. No murmur appreciated. RESPIRATORY: Patient with decreased air movement. GASTROINTESTINAL: Abdomen soft, non-tender, nondistended. Hepatic and splenic margins not palpable. MUSCULOSKELETAL: No obvious deformities. No clubbing. No cyanosis. No edema. NEUROLOGICAL: Awake and alert. No obvious cranial nerve deficits. Motor grossly within normal limits. Normal speech. PSYCHIATRIC: Anxious. Pt update on day of discharge The patient says her coughing was better. She says she will need assistance getting her prescriptions filled. She requested high doses of steroids because of the pollen that is in the environment. She is tolerating a diet. Discussed with nursing. Hospital Course Acute COPD exacerbation The pt is not on home oxygen. Influenza negative. CXR without acute process. She passed a home oxygen walk test. Continues to have coughing fits. We continued standing and as needed bronchodilators. We resumed her home inhaler. IV steroids were changed to PO prednisone. She received IV azithromycin and ceftriaxone. She will complete a course of PO Azithromycin. We encouraged ambulation, IS. We discontinued lisinopril as it may be contributing to her cough. She will follow up with her PCP. Hypertension BP has been elevated. We d/c lisinopril as may be contributing to coughing fits. We added amlodipine 10 mg daily. She received clonidine as needed. She will follow up with her PCP. Pt Condition on Discharge: Stable Discharge Disposition: Discharge Home Discharge Time: > 30 minutes Discharge Instructions DIET: Follow Instructions for: As Tolerated, No Restrictions Activities you can perform: Regular-No Restrictions Follow up Referrals: PCP Follow-up - 1 Week PCP Follow-up New Medications: Azithromycin (Azithromycin) 500 Mg Tab 500 MG PO DAILY for Infection, #2 TAB 0 Refills Guaifenesin-Codeine Liq (Guaifenesin AC Liq) 100-10 Mg/5 Ml Syrp 5 ML PO Q4H PRN for COUGH, #240 ML 0 Refills Prednisone (48) 10 mg tab Dose Pack (Prednisone (48) 10 mg tab Dose Pack) 10 Mg Dspk 10 MG PO DIRECTED for Inflammation, #1 DSPK 0 Refills Amlodipine (Norvasc) 10 Mg Tab 10 MG PO DAILY for Blood Pressure Management, #30 TAB Benzonatate (Tessalon Perles) 100 Mg Cap 200 MG PO TID for cough, #30 CAP Lorazepam (Ativan) 0.5 Mg Tab 0.5 MG PO Q8H PRN for anxiety, #12 TAB Continued Medications: Albuterol 18 GM Inh (Ventolin Hfa 18 GM Inh) 90 Mcg/Act Aer 2 PUFF INH Q4-6H PRN for SHORTNESS OF BREATH, #1 INHALER 0 Refills (This prescription has been renewed) Albuterol Neb (Albuterol Neb) 2.5 Mg/3 Ml Neb 2.5 MG NEB Q4HR NEB PRN for SHORTNESS OF BREATH, #60 NEBULE 0 Refills (This prescription has been renewed) Budesonide-Formoterol Inh (Symbicort Inh) 80-4.5 Mcg/Act Aero 2 PUFF INH Q12HR for Asthma Management, #1 INHALER 0 Refills (This prescription has been renewed) Ipratropium Neb (Ipratropium Neb) 0.5 Mg/2.5 Ml Amp 0.5 MG NEB Q4HR NEB PRN for SHORTNESS OF BREATH, #60 NEBULE 0 Refills (This prescription has been renewed) Discontinued Medications: Lisinopril (Lisinopril) 10 Mg Tab 10 MG PO DAILY, #30 TAB 0 Refills Zia Munguia DO July 07, 2017 12:41
[2017-07-07] MEDS: AZITHROMYCIN INJ 500 MG in SODIUM CHLOR 0.9% 250 ML INJ 250 ML IV SCH (13:00)
== END 2017-07-07 14:24 | disposition home or self-care (01) | DRG 192 ==
LOC: PHED 12:34 → PHEDA 14:07 → PH3B 18:23
PROVIDERS: ADMIT Hospitalist; ATTEND Hospitalist
DX: J44.1 Chronic obstructive pulmonary disease with (acute) exacerbation (principal); I10 Essential (primary) hypertension; M81.0 Age-related osteoporosis without current pathological fracture; R00.0 Tachycardia, unspecified; R09.02 Hypoxemia; R73.9 Hyperglycemia, unspecified; D72.828 Other elevated white blood cell count; D64.9 Anemia, unspecified; M79.651 Pain in right thigh; F32.9 Major depressive disorder, single episode, unspecified; F41.9 Anxiety disorder, unspecified; Z87.891 Personal history of nicotine dependence; Z88.1 Allergy status to other antibiotic agents
CPT/HCPCS: 36600; 71045; 80048; 80053; 81001; 82550; 82805; 82948; 83605; 83735; 84484; 85007; 85027; 85610; 85730; 87040; 87804; 93005; 94150; 94618; 94640; 94664; 96361; 96374; J0456; J0696; J1650; J2920; J2930; J7030; J7050; J7512